=== PATIENT | female | born 1995 | race Caucasian/White ===

== ENCOUNTER 2024-06-20 05:55 | Emergency (ER) | payer OTHER, SELFPAY ==
[2024-06-20 05:56] VITALS: BP 134/80
--- NOTE | 2024-06-20 06:16 | ED.GENMED ---
History of Present Illness
General
Chief Complaint: Abdominal Pain
Source: patient
Exam Limitations: none
Time Seen by Provider: 06/20/24 06:15
Nursing documentation reviewed up to this point in time: agreed with
History of Present Illness
History of Present Illness:
Patient is a 28-year-old female who presents to the ER complaining of left-sided abdominal pain. She reports she has had dull left-sided lower abdominal pain for the past 3 days however pain became worse and sharp around 3 AM. She did take Tylenol
at that time. She does feel some pain in her back. She denies any associated urinary urgency or dysuria. Her last menstrual was 1 week ago and was normal for her. She denies any associated fever or chills. She does have a history of
constipation but takes magnesium but did move her bowels yesterday. She is on Ozempic. She has been on Ozempic for the past 1 year with no problems and her dose was not recently increased.
Past History
Past History
ED Past Medical History: Other (Gastritis); Negative None, Asthma, HTN, Hypercholesterolemia or NIDDM
ED Past Surgical History: and Other ([place] teeth removed in october)
Social History
Tobacco: Non-smoker
Alcohol: Occasional (Rare)
Personal: Single
Living: with family
Employment: Employed (Grocery store)
Family History
Family History: Other (Noncontributory)
Review of Systems
Review of Systems
Allergies reviewed?: Yes
All Other Systems: ROS reviewed and negative except as documented in HPI and ROS
Constitutional: Reports no symptoms; Denies fever, fatigue or chills
EENT: Reports no symptoms
Respiratory: Reports no symptoms
Cardiac: Reports no symptoms
ABD/GI: Reports abdominal pain and nausea; Denies vomiting, diarrhea or constipated
: Reports no symptoms; Denies flank pain, urgency or discharge
Musculoskeletal: Reports back pain
Skin: Reports no symptoms
Neurological: Reports no symptoms
Psychiatric: Reports no symptoms
Phy Exam
General Physical Exam
General Presentation: no apparent distress
General age: appears stated age
General Skin: warm and dry
General Habitus: normal
General Mental: alert
General Hydration: appears well hydrated
Gastrointestinal Exam
Gastrointestinal Exam: soft and other (left sided mid abd tenderness )
Neurological Exam
Neurological Exam: alert and oriented x3
Musculoskeletal Exam
Musculoskeletal Exam: full ROM
Skin Exam
Skin Exam: normal color and warm/dry
Psychiatric Exam
Psychiatric Exam: normal mood/affect
Course
Orders/Labs/Results
Orders:
Orders
06/20/24 06:43
Test Result ONCE
06/20/24 06:45
Complete Blood Count/With Diff Urgent
Comprehensive Metabolic Panel Urgent
HCG, Serum Qualitative Screen Urgent
Urinalysis Reflex To Culture Urgent
Date Specimen was Collected: 06/20/24
Time Specimen was Collected: 06:43
Urine Microscopic Reflex Cult Urgent
Urine Culture Urgent
BATSHEVA Source: U
Specimen Description:
Date Specimen was Collected: 06/20/24
Time Specimen was Collected: 06:43
06/20/24 07:07
CT Abd/pelvis W Iv Cont Urgent
Comment:
Reason For Exam: left sided abd pain
06/20/24 07:08
US Pelvis Only (non-obstetric) Urgent
Comment:
Reason For Exam: left sided abd pain
06/20/24 08:59
Ondansetron Injectable [Zofran] 4 mg .ROUTE .ST-MED ONE
06/20/24 09:00
Ondansetron Injectable [Zofran] 4 mg IV NOW STA
06/20/24 10:37
Nitrofurantoin Monohydrate [Macrobid] 100 mg PO NOW STA
Abnormal Lab Results
06/20/24
06:45
WBC 10.9 H 10^3/uL
(4.8-10.8)
RBC 4.00 L 10^6/uL
(4.20-5.40)
Hgb 11.0 L g/dL
(12.0-16.0)
Hct 33.0 L %
(37.0-47.0)
Absolute Neuts (auto) 8.9 H 10^3/uL
(1.4-6.5)
Neutrophils % 81.9 H %
(42.2-75.2)
Lymphocytes % 10.8 L %
(20.5-51.1)
Potassium 3.4 L mmol/L
(3.5-5.1)
Glucose 105 H mg/dl
(70-99)
AST 13 L U/L
(14-36)
Leukocyte Esterase Rfl 2+ A
(Negative)
Urine RBC 3-6 A /HPF
(0-2)
Urine WBC (Reflex) 11-15 A /HPF
(0-5)
Urine Bacteria (Reflex) Moderate A
(Negative)
Urine Albumin (Reflex) 1+ A
(Neg - Trace)
06/20/24 06:45
06/20/24 06:45
Vital Signs
Initial and Last Documented VS:
Initial Vital Signs
Temp Pulse Resp BP Pulse Ox
98.5 F 78 18 134/80 99
06/20/24 05:56 06/20/24 05:56 06/20/24 05:56 06/20/24 05:56 06/20/24 05:56
Last Documented Vital Signs
Temp Pulse Resp BP Pulse Ox
98.0 F 71 16 121/80 100
06/20/24 06:34 06/20/24 09:57 06/20/24 09:57 06/20/24 09:57 06/20/24 09:57
MDM/Problems Addressed
Differential Diagnosis Includes:
Not limited to diverticulitis colitis less likely renal stone UTI
MDM/Problems Addressed:
As documented patient is a 28-year-old female who presented left side abdominal pain for the past 3 days. No associated urinary symptoms. Patient denies any fever chills change in bowels. She is on Ozempic however this medication has not been
recently changed. She has tolerated that well. On exam she is no acute distress very minimal left side abdominal tenderness. No acute findings on CAT scan or ultrasound. There is an incidental right sided ovarian cyst. Patient was little
nauseous received nausea medicine feeling better. No acute cause of the patient's symptoms however urine appears infected. case d/c w/ DR Wynn will cover for possible UTI w/ Macrobid .
*Radiology
Radiology exam reviewed: radiology read reviewed
*Pulse Oximetry
Patient hypoxic: no
*Critical Care Note
Total Time (30-74mins, 75-104mins- exclusive of procedures): Not Applicable
ED Attending Note
-
Portions of this chart may have been created with voice recognition software.� Occasional wrong word or��sound alike� substitutions may have occurred due to the inherent limitations of voice recognition software.
Discharge Plan
Departure
Patient Disposition: Home (Routine Discharge)
Date of Disposition: 06/20/24
Time of Disposition: 10:39
Patient with high blood pressure during this ER visit?: Yes
Condition: Fair
Covid-19: Not Applicable
Discharge Problem:
Abdominal pain, UTI (urinary tract infection)
Instructions: Urinary tract infections in adults, Abdominal Pain, BLOOD PRESSURE
Prescriptions:
New
nitrofurantoin monohyd/m-cryst [Macrobid] 100 mg capsule
100 mg PO BID Qty: 10 0RF
No Action
escitalopram oxalate [Lexapro] 10 mg Tablet
10 mg PO DAILY
Ozempic 0.25 mg or 0.5 mg(2 mg/1.5 mL) Pen Injector
0.75 mg SC QWEEK
Rx Instructions:
monday
Referrals:
Magali Avendano PA-C [Family Provider] -
Romy Jo DO [Active] -
Activity Restrictions/Additional Instructions:
As discussed we will treat for possible urinary tract infection. Incidentally on ultrasound there is a 2.5 cm simple appearing right ovarian cyst otherwise unremarkable uterus and left ovary and your CAT scan of your abdomen showed nothing acute.
Take antibiotics as directed for the next 5 days this medication was sent to your pharmacy increase fluids. Follow-up with your family doctor in the next several days a reevaluation of your symptoms as well as [employer]. Return if any worsening of
symptoms
Interventions
Interventions:
*Risk Screen - Suicide Last Done: 06/20/24 05:56
*General Assessment Last Done: 06/20/24 05:56
*Neglect/Abuse Screening Last Done: 06/20/24 05:56
*ED- Fall Risk Assessment Last Done: 06/20/24 06:30
*ED COVID-19 Vaccine History Last Done: 06/20/24 05:56
JP-Yeypyj-Zborsydziy Assessment Last Done: 06/20/24 06:30
Discharge Date and Time
Print Language: LITHUANIAN
[2024-06-20 06:30] VITALS: BMI 39.7
[2024-06-20 06:58] LABS: % Basophils 0.6 % (0-2); % Eosinophils 1.5 % (0-6); % Immature Granulocytes 0.3 % (0-0.5); % Lymphocytes 10.8 % (20.5-51.1); % Monocytes 4.9 % (1.7-9.3); % Neutrophils 81.9 % (42.2-75.2); Absolute Basophils 0.1 10^3/uL (0-0.2); Absolute Eosinophils 0.2 10^3/uL (0-0.7); Absolute Lymphocytes 1.2 10^3/uL (1.2-3.4); Absolute Monocytes 0.5 10^3/uL (0.1-0.6); Absolute Neutrophils 8.9 10^3/uL (1.4-6.5); Mean Corp Hgb Conc. 33.3 g/dL (33.0-37.0); Mean Corpuscular Hgb 27.5 pg (27.0-31.0); Mean Corpuscular Volume 82.5 fL (81.0-99.0); Mean Platelet Volume 10.3 fL (7.4-10.4); Nucleated Red Blood Cells % 0 %; Platelet Count 389 10^3/uL (130-400); White Blood Cell Count 10.9 10^3/uL (4.8-10.8)
[2024-06-20 07:13] LABS: ALT (SGPT) < 10 U/L (0-35); AST (SGOT) 13 U/L (14-36); Albumin 3.7 g/dl (3.5-5.0); Alkaline Phosphatase 69 U/L (38-126); Blood Urea Nitrogen 8 mg/dl (7-17); Calcium 9.3 mg/dl (8.4-10.2); Carbon Dioxide 29 mmol/L (22-30); Chloride 104 mmol/L (98-107); Estimated Creatinine Clearance > 125 ml/min; Glucose 105 mg/dl (70-99); Potassium 3.4 mmol/L (3.5-5.1); Sodium 141 mmol/L (135-145); Total Bilirubin 0.6 mg/dl (0.2-1.3); Total Protein 6.5 g/dl (6.3-8.2); eGFR > 60.00
[2024-06-20 07:15] LABS: HCG, Serum Qualitative Screen Negative
[2024-06-20 07:44] LABS: Urine Albumin 1+ (Neg - Trace); Urine Bilirubin Negative (Negative); Urine Character Slightly Cloudy (Clear); Urine Color Yellow; Urine Glucose Negative (Negative); Urine Ketone Negative (Negative); Urine Leukocyte 2+ (Negative); Urine Nitrite Negative (Negative); Urine Occult Blood Negative (Negative); Urine Specific Gravity 1.015 (<1.030); Urine Urobilinogen Negative (Neg - 1+)
[2024-06-20] MEDS: ZOFRAN 4 MG IV (09:01)
[2024-06-20 09:13] LABS: Urine Squamous Cell >30 /LPF (Few); Urine Urothelial Cell 0-2 /LPF (FEW)
[2024-06-20 09:17] LABS: Urine Bacteria Moderate (Negative)
[2024-06-20 09:57] VITALS: BP 121/80
[2024-06-20] MEDS: MACROBID 100 MG PO (10:42)
== END 2024-06-20 11:06 | disposition home or self-care (01) ==
LOC: EMR 05:55
PROVIDERS: Nurse Practitioner; EMERGENCY PHYSICIAN Emergency Medicine; FAMILY PHYSICIAN Physician Assistant
DX: N39.0 Urinary tract infection, site not specified (principal); N83.201 Unspecified ovarian cyst, right side
CPT/HCPCS: 96374; 99284; 74177; 76856; 80053; 81003; 81015; 84703; 85025; 87086; Q9967

== ENCOUNTER 2024-07-27 15:00 | Emergency (ER) | payer OTHER, SELFPAY ==
[2024-07-27 15:00] VITALS: BMI 38.0
[2024-07-27 15:02] VITALS: BP 130/83
--- NOTE | 2024-07-27 15:41 | ED.GENMED ---
History of Present Illness
General
Chief Complaint: Vaginal Bleeding
Time Seen by Provider: 07/27/24 15:41
History of Present Illness
History of Present Illness:
REVIEW OF OLD RECORDS
- I reviewed records. The patient was seen here June 20, 2024 with abdominal pain. At that time she had been having dull left-sided abdominal pain for the preceding 3 days. She has been on Ozempic. A right sided ovarian cyst was seen on imaging
(had CT scan and ultrasound that time).
CHIEF COMPLAINT(S)
Vaginal bleeding and right lower abdominal pain.
HISTORY OF PRESENT ILLNESS
The patient is a 28-year-old female presenting with vaginal bleeding and right lower abdominal pain. She reports a history of similar pain located on the left side during a previous Emergency Room visit on June 17 of this year, where an ovarian cyst
was noted on an ultrasound. Today, the patient describes her pain as being on the right side, radiating to her back. The vaginal bleeding began this morning, with the patient experiencing heavy bleeding, filling a pad every hour and passing a large
clot. She noted she was four days late with her menstrual cycle last month, and if this current bleeding is a period, it is 10 days early. A test taken by the patient was negative. The onset of abdominal pain was during the night. She
experienced mild tenderness upon palpation on the right side during the physical exam. The patient denies nausea, vomiting, diarrhea, breathing difficulties, or chest pain.
EXTERNAL RECORDS REVIEWED
According to previous Emergency Room records from a visit on June 17, a computed tomography scan and ultrasound were conducted, revealing an ovarian cyst on the right side.
PHYSICAL EXAM
- Abdominal Exam: Mild tenderness on palpation of the right lower quadrant.
- Respiratory System: No breathing difficulties or chest pain observed.
- General: Well appearing in no distress
- HEENT: Moist oral mucosa
- Cardiovascular: No murmurs, normal heart rate, regular rhythm, No chest wall tenderness
- Neurologic: Excellent strength all extremities, no coordination deficits
- Psychiatric: Appropriate mental status, normal insight and judgement
- Extremities: Nontender, no edema, moves all extremities equally
- Skin: No rash, no lesions
PROBLEM LIST
- Acute: Vaginal bleeding, Right lower abdominal pain
- Chronic: History of ovarian cyst
PLAN
- Repeat ultrasound to evaluate for changes in the pelvic region.
- Perform bloodwork to assess for any underlying abnormalities.
- Administer a dose of Toradol (Ketorolac) for pain management.
- Consult with the patients obstetrics and gynecology provider, Dr. Brittney Ellison.
DIFFERENTIAL DIAGNOSIS
The Differential Diagnosis includes, in no particular order and is not limited to:
- Ovarian cyst
- Ectopic
- Pelvic inflammatory disease
- Endometriosis
- Uterine fibroids
- Gynecological malignancy
- Hemorrhagic cyst
- Adenomyosis
- Acute appendicitis
- Urinary tract infection
RADIOLOGY
- Ultrasound imaging of the pelvis personally reviewed and I agree with radiologist interpretation of a 4.8 cm left ovarian cyst new from prior and small amount of free fluid noted suggestive of rupture
EKG
- Not indicated
LABS
- Labs obtained, hemoglobin stable
UPDATE
- Patient appeared comfortable while in the emerge department. She was given Toradol.
Past History
Past History
ED Past Medical History: Other (Gastritis); Negative None, Asthma, HTN, Hypercholesterolemia or NIDDM
ED Past Surgical History: and Other ([place] teeth removed in october)
Social History
Tobacco: Non-smoker
Alcohol: Occasional (Rare)
Personal: Single
Living: with family
Employment: Employed (Grocery store)
Family History
Family History: Other (Noncontributory)
Phy Exam
Physical Exam
Physical Exam:
See HPI
Course
Orders/Labs/Results
Orders:
Orders
07/27/24 15:47
Ketorolac [Toradol] 15 mg IV NOW STA
Test Result ONCE
US Pelvis W Transvag Combined Urgent
Reason For Exam: R pain increased vag bleed
07/27/24 15:48
0.9% Sodium Chloride 1000 ml [Nss] 1,000 ml IV BOLUS
Ketorolac [Toradol] 30 mg .ROUTE .STK-MED ONE
07/27/24 15:51
Complete Blood Count/With Diff Urgent
Comprehensive Metabolic Panel Urgent
HCG, Serum Qualitative Screen Urgent
Abnormal Lab Results
07/27/24
15:51
RBC 4.04 L 10^6/uL
(4.20-5.40)
Hgb 10.9 L g/dL
(12.0-16.0)
Hct 33.2 L %
(37.0-47.0)
MCHC 32.8 L g/dL
(33.0-37.0)
Lymphocytes % 19.1 L %
(20.5-51.1)
AST 12 L U/L
(14-36)
07/27/24 15:51
07/27/24 15:51
Vital Signs
Initial and Last Documented VS:
Initial Vital Signs
Temp Pulse Resp BP Pulse Ox
36.7 C 88 16 130/83 100
07/27/24 15:02 07/27/24 15:02 07/27/24 15:02 07/27/24 15:02 07/27/24 15:02
Last Documented Vital Signs
Temp Pulse Resp BP Pulse Ox
36.7 C 84 16 128/79 98
07/27/24 15:02 07/27/24 18:00 07/27/24 18:00 07/27/24 17:48 07/27/24 18:00
*Pulse Oximetry
Patient hypoxic: no (100% room air-normal)
*Critical Care Note
Total Time (30-74mins, 75-104mins- exclusive of procedures): Not Applicable
ED Attending Note
-
Portions of this chart may have been created with voice recognition software.� Occasional wrong word or��sound alike� substitutions may have occurred due to the inherent limitations of voice recognition software.
Discharge Plan
Departure
Patient Disposition: Home (Routine Discharge)
Patient with high blood pressure during this ER visit?: No
Discharge Problem:
Pelvic pain
Instructions: Ovarian Cyst (DC), Bleeding between periods
Prescriptions:
No Action
escitalopram oxalate [Lexapro] 10 mg Tablet
10 mg PO DAILY
Ozempic 0.25 mg or 0.5 mg(2 mg/1.5 mL) Pen Injector
0.75 mg SC QWEEK
Rx Instructions:
monday
nitrofurantoin monohyd/m-cryst [Macrobid] 100 mg capsule
100 mg PO BID Qty: 10 0RF
Referrals:
Magali Avendano PA-C [Family Provider, Internal Medicine]
Romy Jo DO [Active, Gynecology]
Activity Restrictions/Additional Instructions:
Your white blood cell count is normal. Your hemoglobin level is 10.9 this is similar to what it was last month when it was 11.0. Your test is negative. Other basic labs are normal. Ultrasound imaging was obtained today. Follow-up with
Dr. Jo.
Interventions
Interventions:
*Risk Screen - Suicide Last Done: 07/27/24 15:02
*General Assessment Last Done: 07/27/24 15:02
*Neglect/Abuse Screening Last Done: 07/27/24 15:02
*ED- Fall Risk Assessment Last Done: 07/27/24 15:46
*Nursing Disposition Last Done: 07/27/24 17:48
ED-Female Genitourinary Assessment Last Done: 07/27/24 15:46
Discharge Date and Time
Discharge Date/Time: 07/27/24 18:16
Print Language: KOREAN
[2024-07-27] MEDS: TORADOL 15 MG IV (15:50)
[2024-07-27] MEDS: NSS 1000 IV (15:50)
[2024-07-27 16:01] VITALS: BP 119/88
[2024-07-27 16:09] LABS: % Basophils 0.7 % (0-2); % Eosinophils 2.9 % (0-6); % Immature Granulocytes 0.3 % (0-0.5); % Lymphocytes 19.1 % (20.5-51.1); % Monocytes 6.7 % (1.7-9.3); % Neutrophils 70.3 % (42.2-75.2); Absolute Basophils 0.1 10^3/uL (0-0.2); Absolute Eosinophils 0.3 10^3/uL (0-0.7); Absolute Lymphocytes 1.7 10^3/uL (1.2-3.4); Absolute Monocytes 0.6 10^3/uL (0.1-0.6); Absolute Neutrophils 6.1 10^3/uL (1.4-6.5); Hematocrit 33.2 % (37.0-47.0); Hemoglobin 10.9 g/dL (12.0-16.0); Mean Corp Hgb Conc. 32.8 g/dL (33.0-37.0); Mean Corpuscular Volume 82.2 fL (81.0-99.0); Mean Platelet Volume 10.1 fL (7.4-10.4); Nucleated Red Blood Cells % 0 %; Platelet Count 394 10^3/uL (130-400); Red Blood Cell Count 4.04 10^6/uL (4.20-5.40); Red Cell Dist. Width 13.9 % (11.5-14.5); White Blood Cell Count 8.6 10^3/uL (4.8-10.8)
[2024-07-27 16:17] LABS: HCG, Serum Qualitative Screen Negative
[2024-07-27 16:49] LABS: ALT (SGPT) < 10 U/L (0-35); AST (SGOT) 12 U/L (14-36); Alkaline Phosphatase 72 U/L (38-126); Blood Urea Nitrogen 9 mg/dl (7-17); Calcium 9.3 mg/dl (8.4-10.2); Carbon Dioxide 24 mmol/L (22-30); Chloride 106 mmol/L (98-107); Estimated Creatinine Clearance > 125 ml/min; Glucose 91 mg/dl (70-99); Potassium 3.7 mmol/L (3.5-5.1); Sodium 139 mmol/L (135-145); Total Bilirubin 0.6 mg/dl (0.2-1.3); Total Protein 7.1 g/dl (6.3-8.2); eGFR > 60.00
[2024-07-27 17:48] VITALS: BP 128/79
== END 2024-07-27 18:16 | disposition home or self-care (01) ==
LOC: EMR 15:00
PROVIDERS: EMERGENCY PHYSICIAN Emergency Medicine; FAMILY PHYSICIAN Physician Assistant
DX: R10.2 Pelvic and perineal pain (principal); N93.9 Abnormal uterine and vaginal bleeding, unspecified; R10.31 Right lower quadrant pain; N83.201 Unspecified ovarian cyst, right side; N83.202 Unspecified ovarian cyst, left side; Z91.040 Latex allergy status
CPT/HCPCS: 99284; 96374; 96361; 76830; 76856; 80053; 84703; 85025

== ENCOUNTER → 2024-10-02 07:41 | Outpatient (REF) | payer OTHER, SELFPAY | LOC: HWRAD 07:41 | PROVIDERS: ATTENDING PHYSICIAN Obstetrics & Gynecology; FAMILY PHYSICIAN Physician Assistant | DX: N83.202 Unspecified ovarian cyst, left side (principal) | CPT/HCPCS: 76830; 76856 ==

== ENCOUNTER 2024-11-18 08:56 | Emergency (ER) | payer OTHER, SELFPAY ==
[2024-11-18 08:59] VITALS: BP 132/83
[2024-11-18 09:24] VITALS: BMI 35.5
[2024-11-18 09:39] VITALS: BP 117/69
--- NOTE | 2024-11-18 09:40 | ED.GENMED ---
History of Present Illness
<DO Naz Carrion Last Filed: 11/20/24 00:17>
General
Chief Complaint: Abdominal Pain
Source: patient
Time Seen by Provider: 11/18/24 09:30
History of Present Illness
History of Present Illness:
29-year-old female presents to the emergency room complaining of abdominal pain. Patient states she had a sudden onset of right lower abdominal/pelvic pain last night. She did not take anything for the pain. No fever or chills. Pain is worse
with trying to stand up straight or with walking. Patient denies any vaginal discharge or bleeding. Last menstrual period was 2 weeks ago and normal. Patient has had similar pain with ovarian cysts.
Past History
<DO Naz Carrion Last Filed: 11/20/24 00:17>
Past History
ED Past Medical History: Other (Gastritis); Negative None, Asthma, HTN, Hypercholesterolemia or NIDDM
ED Past Surgical History: and Other ([place] teeth removed in october)
Social History
Tobacco: Non-smoker
Alcohol: Occasional (Rare)
Personal: Single
Living: with family
Employment: Employed (Grocery store)
Family History
Family History: Other (Noncontributory)
Phy Exam
<DO Naz Carrion Last Filed: 11/20/24 00:17>
Physical Exam
Physical Exam:
General: Awake, Alert, Oriented X3. No acute distress.
Vitals: unremarkable
Head: Atraumatic
Eyes: Pupils equal, EOMI
Throat: Airway intact, no exudates
Neck: Trachea midline
Lungs: Clear and equal b/l
Heart: Regular rate, no murmurs
Abd: Soft, Nontender, No pulsatile mass
Neuro: Nonfocal
Skin: Warm, dry, no rash
Extremities: pulses equal b/l, no edema
Course
Golt;Jam JoshCarroll Jones, DO - Last Filed: 11/20/24 00:17>
Orders/Labs/Results
Orders:
Orders
11/18/24 09:21
Test Result ONCE
11/18/24 09:36
0.9% Sodium Chloride 1000 ml [Nss] 1,000 ml IV BOLUS
Ketorolac [Toradol] 15 mg IV NOW STA
11/18/24 09:37
US Pelvis W Transvag Combined Urgent
Comment:
Reason For Exam: r pelvic pain eval for torsion
11/18/24 09:40
CMP [Comprehensive Metabolic Panel] Urgent
Complete Blood Count/With Diff Urgent
HCG, Serum Qualitative Screen Urgent
Lipase Urgent
11/18/24 12:55
CT Abd/pelvis W Iv Cont Urgent
Comment:
Reason For Exam: rlq pain
Abnormal Lab Results
11/18/24
09:40
WBC 14.0 H 10^3/uL
(4.8-10.8)
RBC 4.06 L 10^6/uL
(4.20-5.40)
Hgb 10.9 L g/dL
(12.0-16.0)
Hct 33.0 L %
(37.0-47.0)
MCH 26.8 L pg
(27.0-31.0)
Plt Count 425 H 10^3/uL
(130-400)
Abs Immat Gran (auto) 0.1 H 10^3/uL
(0-0.05)
Absolute Neuts (auto) 11.8 H 10^3/uL
(1.4-6.5)
Absolute Monos (auto) 0.7 H 10^3/uL
(0.1-0.6)
Neutrophils % 83.7 H %
(42.2-75.2)
Lymphocytes % 8.2 L %
(20.5-51.1)
11/18/24 09:40
11/18/24 09:40
Vital Signs
Initial and Last Documented VS:
Initial Vital Signs
Temp Pulse Resp BP Pulse Ox
97.6 F 94 18 132/83 97
11/18/24 08:59 11/18/24 08:59 11/18/24 08:59 11/18/24 08:59 11/18/24 08:59
Last Documented Vital Signs
Temp Pulse Resp BP Pulse Ox
98.4 F 81 18 117/70 100
11/18/24 16:15 11/18/24 16:15 11/18/24 16:15 11/18/24 16:15 11/18/24 16:15
<Malcolm Salinas, DO - Last Filed: 11/18/24 15:58>
Orders/Labs/Results
Orders:
Orders
11/18/24 09:21
Test Result ONCE
11/18/24 09:36
0.9% Sodium Chloride 1000 ml [Nss] 1,000 ml IV BOLUS
Ketorolac [Toradol] 15 mg IV NOW STA
11/18/24 09:37
US Pelvis W Transvag Combined Urgent
Comment:
Reason For Exam: r pelvic pain eval for torsion
11/18/24 09:40
CMP [Comprehensive Metabolic Panel] Urgent
Complete Blood Count/With Diff Urgent
HCG, Serum Qualitative Screen Urgent
Lipase Urgent
11/18/24 12:55
CT Abd/pelvis W Iv Cont Urgent
Comment:
Reason For Exam: rlq pain
Abnormal Lab Results
11/18/24
09:40
WBC 14.0 H 10^3/uL
(4.8-10.8)
RBC 4.06 L 10^6/uL
(4.20-5.40)
Hgb 10.9 L g/dL
(12.0-16.0)
Hct 33.0 L %
(37.0-47.0)
MCH 26.8 L pg
(27.0-31.0)
Plt Count 425 H 10^3/uL
(130-400)
Abs Immat Gran (auto) 0.1 H 10^3/uL
(0-0.05)
Absolute Neuts (auto) 11.8 H 10^3/uL
(1.4-6.5)
Absolute Monos (auto) 0.7 H 10^3/uL
(0.1-0.6)
Neutrophils % 83.7 H %
(42.2-75.2)
Lymphocytes % 8.2 L %
(20.5-51.1)
11/18/24 09:40
11/18/24 09:40
Vital Signs
Initial and Last Documented VS:
Initial Vital Signs
Temp Pulse Resp BP Pulse Ox
97.6 F 94 18 132/83 97
11/18/24 08:59 11/18/24 08:59 11/18/24 08:59 11/18/24 08:59 11/18/24 08:59
Last Documented Vital Signs
Temp Pulse Resp BP Pulse Ox
98.4 F 81 18 117/70 100
11/18/24 16:15 11/18/24 16:15 11/18/24 16:15 11/18/24 16:15 11/18/24 16:15
Golt;Jam Jones DO - Last Filed: 11/20/24 00:17>
MDM/Problems Addressed
Differential Diagnosis Includes:
Ruptured ovarian cyst, ovarian torsion, appendicitis, ectopic
MDM/Problems Addressed:
Patient presents with what she describes as fairly sudden onset right lower pelvic pain. test is negative. Patient initially received an ultrasound to exclude ovarian torsion or ruptured ovarian cyst. Ultrasound was essentially normal.
Proceeded the CT to exclude appendicitis or other cause of right lower quadrant pain. Patient signed out to Dr. Salinas pending CT report.
<Jam Jones, DO - Last Filed: 11/20/24 00:17>
*Pulse Oximetry
SaO2: 97
Oxygen Mode of Delivery: Room air
Patient hypoxic: no
*Critical Care Note
Total Time (30-74mins, 75-104mins- exclusive of procedures): Not Applicable
<Malcolm Salinas, DO - Last Filed: 11/18/24 15:58>
Update Note
Update Note:
The care of patient was initially transition pending CT to rule out appendicitis. The radiologist called and stated concern for retroperitoneal lymphadenopathy and concern for lymphoma. Patient states she does have a family history of cancer. We
discussed the importance of outpatient follow-up with hematology/oncology to further work this up to exclude cancer. Patient acknowledged my concern and states she will call
ED Attending Note
<Jam Jones, DO - Last Filed: 11/20/24 00:17>
-
Portions of this chart may have been created with voice recognition software.� Occasional wrong word or��sound alike� substitutions may have occurred due to the inherent limitations of voice recognition software.
Discharge Plan
Departure
Patient Disposition: Home (Routine Discharge)
Date of Disposition: 11/18/24
Time of Disposition: 15:56
Patient with high blood pressure during this ER visit?: No
Discharge Problem:
Abdominal pain
Instructions: Abdominal Pain
Prescriptions:
No Action
escitalopram oxalate [Lexapro] 10 mg Tablet
10 mg PO DAILY
Ozempic 0.25 mg or 0.5 mg(2 mg/1.5 mL) Pen Injector
0.75 mg SC QWEEK
Rx Instructions:
wednesday
nitrofurantoin monohyd/m-cryst [Macrobid] 100 mg capsule
100 mg PO BID Qty: 10 0RF
Referrals:
Talya Garcia MD [Active, Hematology / Oncology]
Magali Avendano PA-C [Family Provider, Internal Medicine]
Activity Restrictions/Additional Instructions:
Please return for any worsening symptoms.
You may return at any time if you have further concerns.
Please follow up with your doctor at the first available appointment, preferably this week.
Please call the roller/oncologist. As we discussed, the radiologist raised concern for the lymph nodes in the CT scan. He mentioned that the roller/oncologist should see you to rule out lymphoma.
Thank you for choosing [facility].
Interventions
Interventions:
*Risk Screen - Suicide Last Done: 11/18/24 08:59
*General Assessment Last Done: 11/18/24 08:59
*Neglect/Abuse Screening Last Done: 11/18/24 08:59
*ED- Fall Risk Assessment Last Done: 11/18/24 09:24
*ED COVID-19 Vaccine History Last Done: 11/18/24 09:24
*ED Influenza Vaccine History Last Done: 11/18/24 09:24
*Nursing Disposition Last Done: 11/18/24 16:15
LE-Zzxpvs-Qpmbykjdii Assessment Last Done: 11/18/24 09:24
Discharge Date and Time
Discharge Date/Time: 11/18/24 16:20
Print Language: MONEGASQUE
[2024-11-18] MEDS: NSS 1000 IV (09:45)
[2024-11-18] MEDS: TORADOL 15 MG IV (09:48)
[2024-11-18 09:56] LABS: Hematocrit 33.0 % (37.0-47.0); Hemoglobin 10.9 g/dL (12.0-16.0); Mean Corp Hgb Conc. 33.0 g/dL (33.0-37.0); Mean Corpuscular Volume 81.3 fL (81.0-99.0); Nucleated Red Blood Cells % 0 %; Platelet Count 425 10^3/uL (130-400); Red Cell Dist. Width 14.4 % (11.5-14.5)
[2024-11-18 10:00] VITALS: BP 116/62
[2024-11-18 10:16] LABS: HCG, Serum Qualitative Screen Negative
[2024-11-18 10:25] LABS: ALT (SGPT) 12 U/L (0-35); AST (SGOT) 17 U/L (14-36); Albumin 3.9 g/dl (3.5-5.0); Alkaline Phosphatase 91 U/L (38-126); Blood Urea Nitrogen 7 mg/dl (7-17); Calcium 9.2 mg/dl (8.4-10.2); Carbon Dioxide 25 mmol/L (22-30); Chloride 104 mmol/L (98-107); Estimated Creatinine Clearance > 125 ml/min; Glucose 95 mg/dl (70-99); Lipase 74 U/L (23-300); Potassium 4.4 mmol/L (3.5-5.1); Sodium 137 mmol/L (135-145); Total Protein 7.3 g/dl (6.3-8.2); eGFR > 60.00
[2024-11-18 11:00] VITALS: BP 107/49
[2024-11-18 16:08] VITALS: BP 117/70
[2024-11-18 16:15] VITALS: BP 117/70
--- NOTE | 2024-11-18 17:07 | EDRN ---
Reviewed discharge instructions with patient. Verbalized understanding. Ambulated with steady gait to the lobby.
== END 2024-11-18 16:20 | disposition home or self-care (01) ==
LOC: EMR 08:56
PROVIDERS: EMERGENCY PHYSICIAN Emergency Medicine; FAMILY PHYSICIAN Physician Assistant
DX: R10.30 Lower abdominal pain, unspecified (principal); R10.2 Pelvic and perineal pain
CPT/HCPCS: 99284; 96374; 96361; 74177; 76830; 76856; 80053; 83690; 84703; 85025; Q9967

== ENCOUNTER 2024-11-26 13:54 | Inpatient (IN) | payer OTHER, SELFPAY ==
[2024-11-26] VITALS (9 sets, daily range): BP systolic 103–134; BP diastolic 57–76; BMI 34.6; BMI 34.2
--- NOTE | 2024-11-26 06:57 | ED.GENMED ---
ED Provider Triage
<Santiago Pratt MD, Resident - Last Filed: 11/26/24 12:27>
-
Patient seen by provider in Triage?: Seen in Triage
History of Present Illness
<Santiago Pratt MD, Resident - Last Filed: 11/26/24 12:27>
General
Chief Complaint: Abdominal Pain
Source: patient
Exam Limitations: none
Time Seen by Provider: 11/26/24 06:40
History of Present Illness
History of Present Illness:
29-year-old female who presents today via EMS because of dull to sharp, localized, intermittent abdominal pain that started at 6 AM this morning in the right lower quadrant. Pain managed with Tylenol. No relieving factors. Pain is similar to
presentation that she had last week when she came with abdominal pain and got a CT scan/ultrasonographic of the abdomen and the diagnosis was that she had an enlarged spleen, liver, lymph nodes. She was then given a referral to go see oncologist to
rule out lymphoma. The pain is associated with nausea, shortness of breath, constipation. No vomiting, diarrhea, loss of appetite, urinary symptoms, hematoma, vaginal discharge. Previous abdominal surgeries include 2 C-sections. She has a
history of ovarian cyst on both sides.
Past History
<Santiago Pratt MD, Resident - Last Filed: 11/26/24 12:27>
Past History
ED Past Medical History: Other (Gastritis); Negative None, Asthma, HTN, Hypercholesterolemia or NIDDM
ED Past Surgical History: and Other ([place] teeth removed in october)
Social History
Tobacco: Non-smoker
Alcohol: Occasional (Rare)
Personal: Single
Living: with family
Employment: Employed ([employer] store)
Family History
Family History: Other (Noncontributory)
Review of Systems
<Santiago Pratt MD, Resident - Last Filed: 11/26/24 12:27>
Review of Systems
Allergies reviewed?: Yes
All Other Systems: ROS reviewed and negative except as documented in HPI and ROS
Phy Exam
<Santiago Pratt MD, Resident - Last Filed: 11/26/24 12:27>
General Physical Exam
General Presentation: well appearing and no apparent distress
General Skin: warm
General Habitus: normal
General Mental: alert
Cardiovascular Exam
Cardiovascular Exam: regular rate/rhythm and no edema
Pulmonary Exam
Pulmonary Exam: lungs clear and no respiratory distress
Gastrointestinal Exam
Gastrointestinal Exam: normal bowel sounds, soft, non distended and tender (Tenderness to palpation in the right lower quadrant)
Neurological Exam
Neurological Exam: alert and oriented x3
Skin Exam
Skin Exam: normal color, warm/dry and no rash
Course
<Santiago Pratt MD, Resident - Last Filed: 11/26/24 12:27>
Orders/Labs/Results
Orders:
Orders
11/26/24 06:55
Ondansetron HCl [Zofran] 4 mg PO NOW STA
11/26/24 06:57
Ketorolac [Toradol] 30 mg IM NOW STA
11/26/24 07:02
Ketorolac [Toradol] 30 mg IV NOW STA
Ondansetron Injectable [Zofran] 4 mg IV NOW STA
11/26/24 07:10
Iohexol [Omnipaque] See Protocol PO NOW STA
11/26/24 07:11
CT Abd/pel W Iv And Oral Contr Urgent
Comment:
Reason For Exam: worsening RLQ pain
Test Result ONCE
11/26/24 07:25
CBC/With Diff [Complete Blood Count/With Diff] Urgent
CMP [Comprehensive Metabolic Panel] Urgent
HCG, Serum Qualitative Screen Urgent
Lactic Acid Q4H
Comment: CANCEL 2nd LACTIC ACID IF 1st LACTIC ACID IS LESS THAN 2
Lipase Urgent
11/26/24 07:57
Urinalysis Reflex To Culture Urgent
Date Specimen was Collected: 11/26/24
Time Specimen was Collected: 07:39
11/26/24 11:09
Morphine Sulfate 4 mg IV NOW STA
11/26/24 11:15
Lactic Acid Q4H
Comment: CANCEL 2nd LACTIC ACID IF 1st LACTIC ACID IS LESS THAN 2
Abnormal Lab Results
11/26/24
07:25
WBC 17.1 H 10^3/uL
(4.8-10.8)
RBC 4.02 L 10^6/uL
(4.20-5.40)
Hgb 10.2 L g/dL
(12.0-16.0)
Hct 32.5 L %
(37.0-47.0)
MCV 80.8 L fL
(81.0-99.0)
MCH 25.4 L pg
(27.0-31.0)
MCHC 31.4 L g/dL
(33.0-37.0)
RDW 14.6 H %
(11.5-14.5)
Plt Count 438 H 10^3/uL
(130-400)
Abs Immat Gran (auto) 0.1 H 10^3/uL
(0-0.05)
Absolute Neuts (auto) 14.9 H 10^3/uL
(1.4-6.5)
Absolute Lymphs (auto) 1.0 L 10^3/uL
(1.2-3.4)
Absolute Monos (auto) 0.8 H 10^3/uL
(0.1-0.6)
Immature Gran % 0.6 H %
(0-0.5)
Neutrophils % 87.3 H %
(42.2-75.2)
Lymphocytes % 5.6 L %
(20.5-51.1)
Glucose 108 H mg/dl
(70-99)
11/26/24 07:25
11/26/24 07:25
Vital Signs
Initial and Last Documented VS:
Initial Vital Signs
Temp Pulse Resp BP Pulse Ox
98.3 F 100 20 134/76 98
11/26/24 06:35 11/26/24 06:35 11/26/24 06:35 11/26/24 06:35 11/26/24 06:35
Last Documented Vital Signs
Temp Pulse Resp BP Pulse Ox
98.3 F 100 20 118/71 96
11/26/24 06:35 11/26/24 06:35 11/26/24 06:35 11/26/24 11:00 11/26/24 11:45
<Esperanza Cullen DO - Last Filed: 11/26/24 12:10>
Orders/Labs/Results
Orders:
Orders
11/26/24 06:55
Ondansetron HCl [Zofran] 4 mg PO NOW STA
11/26/24 06:57
Ketorolac [Toradol] 30 mg IM NOW STA
11/26/24 07:02
Ketorolac [Toradol] 30 mg IV NOW STA
Ondansetron Injectable [Zofran] 4 mg IV NOW STA
11/26/24 07:10
Iohexol [Omnipaque] See Protocol PO NOW STA
11/26/24 07:11
CT Abd/pel W Iv And Oral Contr Urgent
Comment:
Reason For Exam: worsening RLQ pain
Test Result ONCE
11/26/24 07:25
CBC/With Diff [Complete Blood Count/With Diff] Urgent
CMP [Comprehensive Metabolic Panel] Urgent
HCG, Serum Qualitative Screen Urgent
Lactic Acid Q4H
Comment: CANCEL 2nd LACTIC ACID IF 1st LACTIC ACID IS LESS THAN 2
Lipase Urgent
11/26/24 07:57
Urinalysis Reflex To Culture Urgent
Date Specimen was Collected: 11/26/24
Time Specimen was Collected: 07:39
11/26/24 11:09
Morphine Sulfate 4 mg IV NOW STA
11/26/24 11:15
Lactic Acid Q4H
Comment: CANCEL 2nd LACTIC ACID IF 1st LACTIC ACID IS LESS THAN 2
Abnormal Lab Results
11/26/24
07:25
WBC 17.1 H 10^3/uL
(4.8-10.8)
RBC 4.02 L 10^6/uL
(4.20-5.40)
Hgb 10.2 L g/dL
(12.0-16.0)
Hct 32.5 L %
(37.0-47.0)
MCV 80.8 L fL
(81.0-99.0)
MCH 25.4 L pg
(27.0-31.0)
MCHC 31.4 L g/dL
(33.0-37.0)
RDW 14.6 H %
(11.5-14.5)
Plt Count 438 H 10^3/uL
(130-400)
Abs Immat Gran (auto) 0.1 H 10^3/uL
(0-0.05)
Absolute Neuts (auto) 14.9 H 10^3/uL
(1.4-6.5)
Absolute Lymphs (auto) 1.0 L 10^3/uL
(1.2-3.4)
Absolute Monos (auto) 0.8 H 10^3/uL
(0.1-0.6)
Immature Gran % 0.6 H %
(0-0.5)
Neutrophils % 87.3 H %
(42.2-75.2)
Lymphocytes % 5.6 L %
(20.5-51.1)
Glucose 108 H mg/dl
(70-99)
11/26/24 07:25
11/26/24 07:25
Vital Signs
Initial and Last Documented VS:
Initial Vital Signs
Temp Pulse Resp BP Pulse Ox
98.3 F 100 20 134/76 98
11/26/24 06:35 11/26/24 06:35 11/26/24 06:35 11/26/24 06:35 11/26/24 06:35
Last Documented Vital Signs
Temp Pulse Resp BP Pulse Ox
98.3 F 100 20 118/71 96
11/26/24 06:35 11/26/24 06:35 11/26/24 06:35 11/26/24 11:00 11/26/24 11:45
<Santiago Pratt MD, Resident - Last Filed: 11/26/24 12:27>
MDM/Problems Addressed
Differential Diagnosis Includes:
Appendicitis, pancreatitis, lymphadenopathy, kidney stone, ureteral stone, ovarian cyst, ovarian torsion, colitis
MDM/Problems Addressed:
- CBC shows WBC of 17.1, hgb of 10.2
- CMP unremarkable
- UA unremarkable
- test negative
- Toradol given for pain, and Zofran for nausea
- CT scan of abdomen shows Marked retroperitoneal as well as additional portacaval and chloé hepatis lymphadenopathy, adenopathy slightly increased in comparison to recent prior study, particularly chloé hepatis component. Findings are again
suspicious for malignancy.
Oncology consulted, there is concern for malignancy so patient will be admitted for further workup for malignancy
<Santiago Pratt MD, Resident - Last Filed: 11/26/24 12:27>
*Pulse Oximetry
SaO2: 98
Oxygen Mode of Delivery: Room air
Patient hypoxic: no
*Critical Care Note
Total Time (30-74mins, 75-104mins- exclusive of procedures): Not Applicable
ED Attending Note
<Santiago Pratt MD, Resident - Last Filed: 11/26/24 12:27>
-
Portions of this chart may have been created with voice recognition software.� Occasional wrong word or��sound alike� substitutions may have occurred due to the inherent limitations of voice recognition software.
<Esperanza Cullen DO - Last Filed: 11/26/24 12:10>
ED Attending Note
Patient seen and examined by attending physician: Yes
I performed the substantive portion of visit, reviewed & personally made and approve the management plan that is documented in note by myself or GABRIEL.: Yes
I performed a history and physical exam of patient and discussed management with resident, I reviewed resident's note and agree with documented findings and plan of care.: Yes
ED Attending Note:
29-year-old female without significant past medical history presenting for worsening right lower quadrant abdominal pain. Patient notes pain for the past week, which has been intermittent, however since this morning has been constant. Reports
associated nausea without vomiting. Patient was seen and evaluated in the hospital on 11/18 for similar symptoms. At that time, workup was initially started with an ultrasound of the pelvis, unremarkable. Patient then had a CT abdomen and pelvis
with IV contrast to rule out appendicitis, which showed enlarged retroperitoneal lymph nodes with concern for possible lymphoma. Patient was discharged home, told to follow-up with heme-onc. She made an appointment for 12/04. Note surgical
history of . Denies fever. Denies symptoms. Reports shortness of breath with deep inspiration.
Vital signs on arrival are normal. On exam, patient is in no acute distress, however does appear uncomfortable secondary to pain. Focal tenderness to the right lower quadrant without rebound or guarding. On review of EMR and review of recent
imaging, unclear etiology of patient's localized pain. Given worsening and persistence of symptoms, will repeat imaging with oral contrast for further assessment. Will repeat laboratory analysis. Will treat patient with Toradol and Zofran and
reassess for improvement
12:00 -received a call from oncology for worsening retroperitoneal and portacaval and chloé hepatis lymphadenopathy, which has increased in appearance from a CT on 11/18. Patient is still having significant pain, and given worsening possible
oncologic process with pain, feel patient warrants admission. Did discuss with oncology who will come and evaluate
Discharge Plan
Departure
Patient Disposition: Admit
Date of Disposition: 11/26/24
Time of Disposition: 12:12
Presentation/result/management discussed w/ accepting MD/DO: Hospitalist
Patient with high blood pressure during this ER visit?: No
Condition: Fair
Discharge Problem:
Lymphadenopathy, retroperitoneal, Abdominal pain
Prescriptions:
No Action
escitalopram oxalate [Lexapro] 10 mg Tablet
10 mg PO DAILY
Ozempic 0.25 mg or 0.5 mg(2 mg/1.5 mL) Pen Injector
0.75 mg SC QWEEK
Rx Instructions:
monday
nitrofurantoin monohyd/m-cryst [Macrobid] 100 mg capsule
100 mg PO BID Qty: 10 0RF
Referrals:
Magali Avendano PA-C [Family Provider, Internal Medicine]
Interventions
Interventions:
*Risk Screen - Suicide Last Done: 11/26/24 07:51
*General Assessment Last Done: 11/26/24 07:51
*Neglect/Abuse Screening Last Done: 11/26/24 07:51
*ED COVID-19 Vaccine History Last Done: 11/26/24 07:51
*ED Influenza Vaccine History Last Done: 11/26/24 07:51
QM-Rcudjb-Gngdekkrpt Assessment Last Done: 11/26/24 07:53
Discharge Date and Time
Print Language: DIVEHI
[2024-11-26] MEDS: ZOFRAN 4 MG IV ×2 (07:27→15:26)
[2024-11-26] MEDS: TORADOL 30 MG IV (07:28)
[2024-11-26] MEDS: OMNIPAQUE 50 ML PO (07:35)
[2024-11-26 07:38] LABS: Hematocrit 32.5 % (37.0-47.0); Hemoglobin 10.2 g/dL (12.0-16.0); Mean Corp Hgb Conc. 31.4 g/dL (33.0-37.0); Mean Corpuscular Volume 80.8 fL (81.0-99.0); Nucleated Red Blood Cells % 0 %; Platelet Count 438 10^3/uL (130-400); Red Cell Dist. Width 14.6 % (11.5-14.5)
[2024-11-26 07:48] LABS: HCG, Serum Qualitative Screen Negative
[2024-11-26 07:55] LABS: ALT (SGPT) 13 U/L (0-35); AST (SGOT) 15 U/L (14-36); Albumin 3.7 g/dl (3.5-5.0); Alkaline Phosphatase 94 U/L (38-126); Calcium 9.0 mg/dl (8.4-10.2); Carbon Dioxide 27 mmol/L (22-30); Chloride 102 mmol/L (98-107); Glucose 108 mg/dl (70-99); Lipase 85 U/L (23-300); Potassium 3.6 mmol/L (3.5-5.1); Sodium 137 mmol/L (135-145); Total Protein 6.8 g/dl (6.3-8.2)
[2024-11-26 08:06] LABS: Blood Urea Nitrogen 8 mg/dl (7-17); Estimated Creatinine Clearance 125 ml/min; eGFR > 60.00
[2024-11-26 08:20] LABS: Urine Character Cloudy (Clear)
[2024-11-26] MEDS: MORPHINE SULFATE 4 MG IV (11:22)
--- NOTE | 2024-11-26 13:16 | CON.ONC ---
Consultation
-
Date Consultation Requested: 11/26/24
Date Consultation Performed: 11/26/24
Requesting Provider: Dr. Devika Hussein
Performing Provider: Dr. Marianna Jones and Dr. Luis Delvalle
Reason for Consultation: Abnormal CT results
Impression
Impression
#Abnormal CT imaging- retroperitoneal lymphadenopathy concerning for lymphoma
#RLQ abdominal pain
#Nausea
#Generalized pruritis
Plan
Plan
- Patient is a 29 year old female presenting with RLQ pain since 6 AM this morning; similar episode last week.
- CT results last week and today shows marked retroperitoneal lymphadenopathy, concerning for lymphoma. Other differential include metastatic malignancy or infectious/reactive lymphadenopathy.
- Discussed with patient about imaging findings concerning for possible malignancy such as lymphoma but diagnosis requires tissue confirmation.
- Patient will likely need excision or core needle biopsy. Plan to consult GI to possibly obtain biopsy via upper endoscopy.
- Patient has anemia (hgb 10.2, low MCV)- iron studies pending.
- Awaiting Leukemia lymphoma phenotype results.
- Emphasized importance of keeping the appointment with [facility] on 12/04/24 for further evaluation and management planning.
Patient History
History of Present Illness
Patient is a 29 year old female without significant past medical history presenting with abdominal pain. Patient has been having constant and progressive right lower quadrant abdominal pain since 6 AM this morning associated with nausea. The
abdominal pain radiates towards the back. Patient had a similar episode last week, and CT abdomen/pelvis showed retroperitoneal lymphadenopathy concerning for malignancy, specifically lymphoma. She has had generalized pruritic over the past 6
months, and states had night sweats over the past few nights. Patient has an appointment with [facility] on 12/04/24 for further work up. LMP 11/05/24, normal.
Past-Medical/Surgical History
Family history significant for leukemia in maternal grandfather, lung cancer and breast cancer in maternal aunts.
Patient Medication
�Medication �Instructions �Recorded �Confirmed �Last Taken �Type
escitalopram oxalate 10 mg tablet 10 mg PO DAILY 06/20/24 06/20/24 Unknown History
(Lexapro)
nitrofurantoin 100 mg PO BID #10 caps 06/20/24 Unknown Rx
monohydrate/macrocrystals 100 mg
capsule (Macrobid)
semaglutide 0.25 mg or 0.5 mg (2 0.75 mg SC QWEEK 06/20/24 06/20/24 Unknown History
mg/1.5 mL) subcutaneous pen
injector (Ozempic)
Review of Systems
-
History Source: Patient
All Other Systems: Reviewed and Negative
Constitutional: Reports Night Sweats
EENT: Reports No Symptoms
Respiratory: Reports No Symptoms
Cardiac: Reports No Symptoms
GI: Reports Abdominal Pain and Nausea
Breast: Reports No Symptoms
: Reports No Symptoms
Musculoskeletal: Reports No Symptoms
Skin: Reports Other (Pruritis)
Neuro: Reports No Symptoms
Endocrine: Reports No Symptoms
Hematologic/Lymphatic: Reports No Symptoms
Allergy / Immunology: Reports No Symptoms
Physical Exam
-
General: Well Developed, Well Nourished, No Apparent Distress, Comfortable and Conversant
HEENT: Moist Mucous Membranes
Cardiology: Normal Sinus Rhythm, S1 and S2
Pulmonary: Clear
GI: Soft, Normal Bowel Sounds and Other (Mild tenderness over RLQ)
Musculoskeletal: No Clubbing, No Cyanosis and No Edema
Neurology: Non Focal
Skin: Warm
Psych: Calm
Labs
Lab Results
WBC 17.1 10^3/uL (4.8-10.8) H 11/26/24 07:25
RBC 4.02 10^6/uL (4.20-5.40) L 11/26/24 07:25
Hgb 10.2 g/dL (12.0-16.0) L 11/26/24 07:25
Hct 32.5 % (37.0-47.0) L 11/26/24 07:25
MCV 80.8 fL (81.0-99.0) L 11/26/24:25
MCH 25.4 pg (27.0-31.0) L 11/26/24 07:25
MCHC 31.4 g/dL (33.0-37.0) L 11/26/24:25
RDW 14.6 % (11.5-14.5) H 11/26/24 07:25
Plt Count 438 10^3/uL (130-400) H 11/26/24:25
MPV 10.1 fL (7.4-10.4) 11/26/24:25
Abs Immat Gran (auto) 0.1 10^3/uL (0-0.05) H 11/26/24:25
Absolute Neuts (auto) 14.9 10^3/uL (1.4-6.5) H 11/26/24 07:25
Absolute Lymphs (auto) 1.0 10^3/uL (1.2-3.4) L 11/26/24 07:25
Absolute Monos (auto) 0.8 10^3/uL (0.1-0.6) H 11/26/24 07:25
Absolute Eos (auto) 0.2 10^3/uL (0-0.7) 11/26/24:
Absolute Basos (auto) 0.1 10^3/uL (0-0.2) 11/26/24:25
Immature Gran % 0.6 % (0-0.5) H 11/26/24:25
Neutrophils % 87.3 % (42.2-75.2) H 11/26/24:25
Lymphocytes % 5.6 % (20.5-51.1) L 11/26/24 07:25
Monocytes % 4.7 % (1.7-9.3) 11/26/24:25
Eosinophils % 1.3 % (0-6) 10/14/25 07:25
Basophils % 0.5 % (0-2) 11/26/24 07:25
Creatinine 0.8 mg/dL (0.6-1.0) 11/26/24 07:25
Vital Signs
Vital Signs
Temp Pulse Resp BP Pulse Ox
98.3 F 100 20 118/71 96
11/26/24 06:35 11/26/24 06:35 11/26/24 06:35 11/26/24 11:00 11/26/24 11:45
--- NOTE | 2024-11-26 13:39 | HPS.HSE ---
Family Physician
-
Family Physician: Magali Avendano
Chief Complaint
-
Abdominal pain
History of Present Illness
29F with anxiety/depression, presenting with abdominal pain. First occurred last week, and CT scan in ED revealed retroperitoneal lymphadenopathy, which was concerning for malignancy such as lymphoma. She was discharged from the ED, however
returns today with worsening pain. She notes she woke up this morning with pain in her right side, radiating to her back, described as dull, constant pain, intermittently sharp, 8 out of 10, not worsened by movement. In the ED she was given IV
morphine, which resolved the pain. She also noted some nausea, no vomiting, which resolved with IV Zofran. She denies fevers, chills, chest pain, shortness of breath, diarrhea, rash. She notes she has been on Ozempic and has been losing weight
purposefully, however does note some night sweats. She notes no change in energy levels. She also notes some chronic constipation for which she takes magnesium glycine 8, last BM was 3 days ago. She has had itching for the last 6 months. Her
fianc� is at bedside.
Medical History
Past Medical History
Past Medical History: Reports Other
Additional Past Medical History:
anxiety/depression
Past Surgical History: Reports None
Social History
Tobacco: Vaping (Recently quit)
Alcohol: None
Drug: None
Personal: Partner
Living: With Family
Employment: Employed
Family History
Family History: Early CAD (Father in his 50s) and Cancer (Grandmother, aunts)
Allergies / Home Medications
Allergies reflects when Allergies were last updated in [facility].
Home Medications with original date entered in [facility]
Allergy/Medication List:
Allergies
Allergy/AdvReac Type Severity Reaction Status Date / Time
latex Allergy Rash Verified 11/26/24 06:36
Home Medications
escitalopram oxalate 10 mg tablet (Lexapro) 10 mg PO DAILY 05/08/25
magnesium glycinate 100 mg (as glycinate) tablet 100 mg PO DAILY 11/26/24
semaglutide 1 mg/dose (4 mg/3 mL) subcutaneous pen injector (Ozempic) 1 mg SC WE 11/26/24
Review of Systems
-
A 12 point ROS was completed and negative except as noted: Yes
Physical Exam
Vital Signs
Vital Signs
Temp Pulse Resp BP Pulse Ox
98.3 F 100 20 118/71 96
11/26/24 06:35 11/26/24 06:35 11/26/24 06:35 11/26/24 11:00 11/26/24 11:45
Physical Exam
General: Well Developed, Well Nourished and No Apparent Distress
HEENT: NormoCephalic, Moist mucous membranes and Atraumatic
Respiratory: Clear
Cardiac: S1/S2 and Regular Rhythm; No Murmur or Rub
GI: Soft, Non Tender, Non Distended, Normal Bowel Sounds and No Hepatosplenomegaly; No Organomegaly
Rectal: Deferred by Provider
Musculoskeletal: No Clubbing, No Cyanosis and No Edema
Skin: No Rash
Neuro: Nonfocal/grossly intact
Laboratory Results
-
11/26/24 07:25
11/26/24 07:25
Laboratory Results
Lactic Acid 0.7 mmol/L (0.7-2.0) 11/26/24 07:25
Total Bilirubin 0.6 mg/dl (0.2-1.3) 11/26/24 07:25
AST 15 U/L (14-36) 11/26/24 07:25
ALT 13 U/L (0-35) 11/26/24 07:25
Alkaline Phosphatase 94 U/L (38-126) 11/26/24 07:25
Lipase 85 U/L (23-300) 11/26/24 07:25
Data Reviewed
-
CT Scan: Report Reviewed by me, Discussed with Patient and Discussed with Family
Lab Data: Labs Reviewed by me
Impression/Plan
-
IMPRESSION:
29F with abdominal pain, found to have retroperitoneal lymphadenopathy.
PLAN:
Intractable right upper quadrant abdominal pain:
CT scan performed shows lymphadenopathy - retroperitoneal, portacaval and chloé hepatis -that is slightly increased compared to 1 week ago, which is concerning for aggressive lymphoma.
UA is WNL, lipase is WNL. Liver is mildly enlarged, however LFTs are WNL
Oncology consulted, spoke to Dr. Jones for further recommendations
Lymphoma panel
Regular diet
prn oral oxycodone, IV morphine, IV Zofran. Bowel regimen.
Leukocytosis:
Worsened from 1 week ago
Lactic acid is within normal limits, repeat is pending
Suspect this is secondary to lymphoma, workup as per onc
Blood cultures
Anxiety/depression:
Continue home Lexapro
Microcytic anemia:
Check iron panel, B12/folate
Replete if needed
Weight loss:
Hold home Ozempic
DVT PPx:
Lovenox
Full code
[2024-11-26] MEDS: ZOFRAN IV (15:19)
--- NOTE | 2024-11-26 15:24 | EDCM ---
CM reviewed chart and met with pt bedside in ED. Lives with her SO Jake and 2 children, 9yo and 2 yo, in one story modular home, [address].
Independent in ADLs, personal care and ambulation at baseline, no assistive devices, no DME.
Confirms prescription coverage.
No hx VN or SNF
PCP: Magali Avendano
Pharmacy: [facility]
Anticipate discharge home, no needs, CM will continue to follow.
[2024-11-26 15:25] LABS: Ferritin 120.0 ng/ml (6.24-137)
[2024-11-26 15:56] LABS: Folate 2.0 ng/ml (2.76-20); Iron 36 ug/dl (37-170); LDH 215 U/L (120-246); Uric Acid 4.9 mg/dl (2.5-6.2); Vitamin B12 576 pg/ml (239-931)
[2024-11-26 16:05] LABS: Total Iron Binding Capacity 239 ug/dl (265-497)
[2024-11-26] MEDS: LOVENOX 40 MG SC (20:01)
[2024-11-26] MEDS: COLACE 100 MG PO (20:02)
[2024-11-26] MEDS: ROXICODONE 5 MG PO (20:02)
[2024-11-27] MEDS: ZOFRAN 4 MG IV ×2 (06:03→16:04)
[2024-11-27] MEDS: MORPHINE SULFATE 4 MG IV (06:08)
[2024-11-27 06:14] LABS: Hematocrit 32.0 % (37.0-47.0); Hemoglobin 9.9 g/dL (12.0-16.0); Mean Corp Hgb Conc. 30.9 g/dL (33.0-37.0); Mean Corpuscular Volume 84.9 fL (81.0-99.0); Nucleated Red Blood Cells % 0 %; Platelet Count 393 10^3/uL (130-400); Red Cell Dist. Width 14.9 % (11.5-14.5)
[2024-11-27 06:34] LABS: ALT (SGPT) 11 U/L (0-35); AST (SGOT) 13 U/L (14-36); Albumin 3.3 g/dl (3.5-5.0); Alkaline Phosphatase 90 U/L (38-126); Blood Urea Nitrogen 8 mg/dl (7-17); Calcium 8.7 mg/dl (8.4-10.2); Carbon Dioxide 27 mmol/L (22-30); Chloride 104 mmol/L (98-107); Estimated Creatinine Clearance 124 ml/min; Glucose 93 mg/dl (70-99); Magnesium 2.3 mg/dl (1.6-2.3); Potassium 4.1 mmol/L (3.5-5.1); Sodium 136 mmol/L (135-145); Total Protein 6.2 g/dl (6.3-8.2); eGFR > 60.00
[2024-11-27 07:27] VITALS: BP 115/67
--- NOTE | 2024-11-27 08:15 | CON.GI ---
Addendum entered and electronically signed by Alicia Oneill MD 11/27/24 18:42:
I saw and examined the patient.
The resident's note was reviewed and I agree with the note.
Comment: 29-year-old female presenting with complaints of right lower quadrant abdominal pain in the last week that is radiating to the right flank and back. She reports that this started a couple of months ago after she had an ovarian cyst that
ruptured and followed on ultrasound. This time the pain was consistent and came to the emergency room. In the ER, CT scan of the abdomen and pelvis with IV contrast done 11/18/2024 showing prominent retroperitoneal and portacaval lymphadenopathy
with some accompanying stranding, had repeat CT scan 11/26/2024 with IV and oral contrast that showed marked retroperitoneal and additional portacaval and chloé hepatic lymphadenopathy slightly increased and compared to previous study, findings
suspicious for malignancy. She also has mild iron deficiency anemia which seems to be chronic.
Other than the abdominal discomfort, no nausea or vomiting. No heartburn or trouble swallowing. She has chronic constipation since she started Ozempic about a year and a half ago and lost 82 pounds.
No family history of colon cancer colon polyps.
- Right lower quadrant abdominal pain, CT scan showing retroperitoneal, portal hepatic and portal caval lymph nodes suspicious for malignancy
As per IR, lymphadenopathy not amenable for sampling and GI consulted for EUS with biopsy of the portacaval lymph nodes.
Last Ozempic dose 11/20/[address] Dos Santos, she is scheduled for EUS with sampling of the lymph nodes tomorrow.
Oncology on board as well.
Original Note:
Consultation
-
Date/Time Consultation Requested: 11/26/2024; 15:43
Date/Time Consultation Performed: 11/27/2024; 08:15
Requesting Provider: Luis Delvalle MD
Performing Provider: Alicia Oneill MD; Wilbur Monroe MD
Reason for Consultation: Possible biopsy via endoscopy
Medical History
Chief Complaint / HPI
Chief Complaint: Abdominal pain
History of Present Illness:
29 yo F PMH anxiety, depression p/w abdominal pain in RLQ, right flank, and right back.
This first happened last week, and workup in ED disclosed retroperitoneal lymphadenopathy on abdominal CT, raising the concern for malignancy. At that time, she was discharged with outpatient follow-up. However, the patient reports that over the
weekend, there was worsening pain that was sharper, shooting up the back that made it difficult to breathe. For these reasons, she presented to the ED.
The location of the pain is in the RLQ abdomen, right flank, and right back. Alleviates when knees brought to chest, but often flares at night. It is associated with pruritus.
She reports nausea, but denies vomiting. She denies changes to bowel habits, melena, hematochezia. She is on ozempic. She reports that is constipated and has a bowel regimen at home.
She otherwise denies chest pain, dyspnea, dysuria, focal weakness, numbness. She does report occasional migraines.
Past Medical History
Past Medical History: Other (anxiety, depression)
Past Surgical History: None
Social History
Tobacco: Other (former vaping)
Alcohol: None
Drug: None
Personal: Partner
Living: With Family
Employment: Employed
Family History
Family History: Cancer (grandfather, aunts)
Allergies / Home Medications
Allergy/AdvReac Type Severity Reaction Status Date / Time
latex Allergy Rash Verified 11/26/24 06:36
�Medication �Instructions �Recorded
escitalopram oxalate 10 mg tablet 10 mg PO DAILY 06/20/24
(Lexapro)
magnesium glycinate 100 mg (as 100 mg PO DAILY 11/26/24
glycinate) tablet
semaglutide 1 mg/dose (4 mg/3 mL) 1 mg SC WE 11/26/24
subcutaneous pen injector (Ozempic)
Review of Systems
-
History Source: Patient
Constitutional: Reports Other (pruritus)
EENT: Reports No Symptoms
Respiratory: Reports No Symptoms
Cardiac: Reports No Symptoms
Abdomen/GI: Reports Abdominal Pain (RLQ, right flank, right back)
: Reports No Symptoms
Musculoskeletal: Reports Other (right back pain)
Skin: Reports Other (pruritus)
Neurological: Reports No Symptoms
Endocrine: Reports No Symptoms
Hematologic/Lymphatic: Reports No Symptoms
Vital Signs
Temp Pulse Resp BP Pulse Ox
98.4 F 85 17 107/57 98
11/26/24 23:26 11/26/24 23:26 11/26/24 23:26 11/26/24 23:26 11/26/24 23:26
Physical Exam
Exam
General: Comfortable
HEENT: Normocephalic
Respiratory: Clear
Cardiac: Other (no murmurs on my exam)
GI: Soft, Non Distended, Normal Bowel Sounds and Tender (tender to palpation in RLQ, right flank, right back)
Genito-urinary: No Costovertebral Tender
Musculoskeletal: No Edema
Skin: Warm
Neuro: AO x 3 and No Motor Deficits
Psych: Calm
Results
WBC 13.3 10^3/uL (4.8-10.8) H 11/27/24 05:59
Hgb 9.9 g/dL (12.0-16.0) L 11/27/24 05:59
Hct 32.0 % (37.0-47.0) L 11/27/24 05:59
MCV 84.9 fL (81.0-99.0) 11/27/24 05:59
Plt Count 393 10^3/uL (130-400) 11/27/24 05:59
Absolute Neuts (auto) 11.0 10^3/uL (1.4-6.5) H 11/27/24 05:59
Sodium 136 mmol/L (135-145) 11/27/24 05:59
Potassium 4.1 mmol/L (3.5-5.1) 11/27/24 05:59
Chloride 104 mmol/L (98-107) 11/27/24 05:59
Carbon Dioxide 27 mmol/L (22-30) 11/27/24 05:59
BUN 8 mg/dl (7-17) 11/27/24 05:59
Creatinine 0.8 mg/dL (0.6-1.0) 11/27/24 05:59
Calcium 8.7 mg/dl (8.4-10.2) 11/27/24 05:59
Total Bilirubin 0.5 mg/dl (0.2-1.3) 11/27/24 05:59
AST 13 U/L (14-36) L 11/27/24 05:59
ALT 11 U/L (0-35) 11/27/24 05:59
Alkaline Phosphatase 90 U/L (38-126) 11/27/24 05:59
Lipase 85 U/L (23-300) 11/26/24 07:25
Iron: 36 L
TIBC 239 L
% saturation 15 L
Ferritin 120 (wnl)
Diagnostic Image Results:
CT Abdomen Pelvis w IV contrast 11/26/2024:
IMPRESSION:
Marked retroperitoneal as well as additional portacaval and chloé hepatis lymphadenopathy, adenopathy slightly increased in comparison to recent prior study, particularly chloé hepatis component. Findings are again suspicious for malignancy.
Retroaortic left renal vein, congenital variants of normal
Mild hepatosplenomegaly.
Unremarkable appendix.
No intestinal obstruction or free air.
Limited evaluation of intestinal tract with loops of unopacified small bowel and totally unopacified large bowel with moderate volume widespread colonic stool. Unfortunately, small bowel or large bowel lesion cannot be entirely excluded on the basis
of this study.
New small volume simple free fluid in the dependent true pelvis.
Assessment / Plan
-
In summary, 29 yo F PMH anxiety/depression presenting with worsening abdominal pain when previously found to have retroperitoneal lymphadenopathy, concerning for malignancy.
# RLQ abdominal, right flank, right back pain
- Abdominal CT scan shows worsening retroperitoneal lymphadenopathy compared to prior week's scan concerning for malignancy, the rate of reported growth is concerning for aggressive malignancy
- She reports pruritus, which can also point towards a malignancy
- She already has an outpatient appointment scheduled with [facility] on 12/04/2024
- per Heme/Onc note, IR deemed not amenable to biopsy
Plan
- Will check with Dr. Dos Santos if EUS biopsy is technically feasible.
- Ondansetron for anti-nausea
- pain control
- Bowel regimen
- Recommendations are not final until discussed with Dr. Oneill, GI attg
# Anemia of chronic disease
- iron studies showed low serum iron, normal ferritin, low % saturation, and low TIBC.
- No a clear cut classification, but the overall panel is likely consistent with anemia of chronic disease in the setting of potential malignancy
- per uptodate, ferritin < 100ng/mL would indicate iron deficiency in ACD, in this case, iron supplementation is likely not needed
Plan:
- treatment of underlying condition should address the likely anemia of chronic disease
- Recommendations are not final until discussed with Dr. Oneill, GI attg
-
-
Thank you for consultation and allowing me to participate in the patient's care. Please call the concession manager GI physician during the after hours with any questions or concerns.
[2024-11-27] MEDS: COLACE 100 MG PO ×2 (08:51→19:52)
[2024-11-27] MEDS: LEXAPRO 10 MG PO (08:51)
[2024-11-27] MEDS: SENOKOT-S 1 TABLET PO ×2 (08:52→16:04)
[2024-11-27] MEDS: MIRALAX 17 GRAMS PO (08:52)
[2024-11-27] MEDS: TYLENOL 650 MG PO (08:54)
--- NOTE | 2024-11-27 09:56 | W.PN.ONC2 ---
Today's Communication / Plan
-
GI to possible perform endoscopy to obtain biopsy.
Trend labs to monitor for tumor lysis syndrome.
Awaiting flow cytometry results.
Patient to follow up with [facility] 12/04/24.
Impression
Impression
#Abnormal CT imaging- retroperitoneal lymphadenopathy concerning for lymphoma
#RLQ abdominal pain
#Nausea
#Generalized pruritis
Plan
Plan
- Patient is a 29 year old female presenting with RLQ pain since 6 AM this morning; similar episode last week.
- CT results last week and today shows marked retroperitoneal lymphadenopathy, concerning for lymphoma. Other differential include metastatic malignancy or infectious/reactive lymphadenopathy.
- Discussed with patient about imaging findings concerning for possible malignancy such as lymphoma but diagnosis requires tissue confirmation.
- Patient will likely need excision or core needle biopsy. GI has been consulted for endoscopy guided biopsy.
- Patient has anemia (hgb 9.9, low MCV)- iron 37, normal ferritin, transferrin pending- less likely iron deficiency anemia.
- LDH 215, which is a favorable prognostic factor and indicates low progression of disease/no rapid turnover.
-Uric acid normal, K normal -trend labs for tumor lysis syndrome.
- Awaiting flow cytometry results.
- Emphasized importance of keeping the appointment with [facility] on 12/04/24 for further evaluation and management planning.
Subjective/Objective
Subjective
Upon evaluation of patient today, she is feeling well. She reiterates expresses the itching all over the body while actively itching during the conversation. Patient is aware of possible lymphoma diagnosis. No new complaints.
Vital Signs:
Vital Signs
Temp Pulse Resp BP Pulse Ox
98.2 F 92 16 115/67 98
11/27/24 07:27 11/27/24 07:27 11/27/24 07:27 11/27/24 07:27 11/27/24 07:27
Lab Results:
Laboratory Data
WBC 13.3 10^3/uL (4.8-10.8) H 11/27/24 05:59
Hgb 9.9 g/dL (12.0-16.0) L 11/27/24 05:59
Plt Count 393 10^3/uL (130-400) 11/27/24 05:59
eGFR > 60.00 11/27/24 05:59
Physical Exam
HEENT: Moist Mucous Membranes
Cardiology: Normal Sinus Rhythm, S1 and S2
Pulmonary: Clear
GI: Soft and Normal Bowel Sounds
Review of Systems
Review of Systems
Skin: Reports Pruritis
Orders
Orders
Orders From Last 24 Hours
11/26/24 15:43
Consult Gastroenterology [GASTROINTESTINAL CONSULT] Routine
--- NOTE | 2024-11-27 10:38 | CM ---
Addendum entered by Linda Boyd 11/27/24 11:03:
A list of outpatient resources for counseling provided to pt.
Original Note:
Chart Reviewed. Met with pt bedside. Continues with abdominal pain and pain management. Being worked up for possible malignancy. Possible biopsy today
Plan: TBD after workup
[2024-11-27] MEDS: COMPAZINE 5 MG IV ×2 (11:11→19:54)
[2024-11-27 15:00] VITALS: BP 128/63
--- NOTE | 2024-11-27 15:36 | W.PN.HOSP.TC ---
Today's Communication/Plan
-
plan EUS biopsy this week
pain control IV and po
Assessment / Plan
Assessment / Plan
29F with abdominal pain, found to have retroperitoneal lymphadenopathy.
Suspected lymphoma
Intractable right upper quadrant abdominal pain:
CT scan performed shows lymphadenopathy - retroperitoneal, portacaval and chloé hepatis -that is slightly increased compared to 1 week ago, which is concerning for lymphoma. Night sweats for a few day, and has had pruritus for 6 months which is a sx
commonly assc with lymphoma
UA is WNL, lipase is WNL. Liver is mildly enlarged, however LFTs are WNL
Oncology consulted, discussed with Dr. Roth, patient will undergo EUS biopsy Monday, but will not have to stay for results, will have [facility]
Lymphoma panel pending
Regular diet
prn oral oxycodone, IV morphine, IV Zofran. Bowel regimen.
Leukocytosis:
Worsened from 1 week ago
Lactic acid is within normal limits
Suspect this is secondary to lymphoma, workup as per onc
Blood cultures pending
Anxiety/depression:
Continue home Lexapro
Microcytic anemia:
iron panel suggests AoCD (low iron, low TIBC, normal ferritin)
B12 wnl, folate low
Replete if needed
Constipation
Bowel regimen
Weight loss:
Hold home Ozempic
DVT PPx:
Lovenox
Full code
Anticipated Discharge: 24 - 48 hours
Subjective/Interval History
-
Date of Service: November 27, 2024
Pt denies any pain at present, had some overnight which resolved with some pain meds.
Objective Data
-
Labs:
Laboratory Results
11/27/24
05:59
WBC 13.3 H
Hgb 9.9 L
Hct 32.0 L
Plt Count 393
Sodium 136
Potassium 4.1
Chloride 104
Carbon Dioxide 27
BUN 8
Creatinine 0.8
Glucose 93
Calcium 8.7
Total Bilirubin 0.5
AST 13 L
ALT 11
Alkaline Phosphatase 90
Vital Signs:
Vital Signs
Temp Pulse Resp BP Pulse Ox
98.2 F 92 16 115/67 98
11/27/24 07:27 11/27/24 07:27 11/27/24 07:27 11/27/24 07:27 11/27/24 08:15
I&O
11/26/24 11/27/24 11/28/24
06:59 06:59 06:59
Intake Total 120 / 120
Balance 120 / 120
Review of Systems
-
All other systems: Reviewed and negative
Physical Exam
-
General: No Apparent Distress
HEENT: Moist Mucous Membranes, Anicteric and PERRLA
Respiratory: Clear to Auscultation; Negative Wheezes, Rales or Rhonchi
Cardiac: Regular Rhythm and S1/S2; Negative Murmur, Rub or Gallop
GI: Soft, Nontender, Nondistended and Normal Bowel Sounds
Musculoskeletal: No Edema
Skin: Warm and Dry; Negative Rash, Ulcers or Lesions
Neuro: Awake and AO x 3
Hematologic / Lymphatic: No Lymphadenopathy
Psych: Calm
Data Reviewed
-
CT Scan: Report Reviewed by me, Discussed with Physician and Discussed with Patient
Labs: Labs Reviewed by me, Discussed with Physician and Discussed with Patient
[2024-11-27] MEDS: ROXICODONE 5 MG PO (18:18)
[2024-11-27] MEDS: DULCOLAX 10 MG RECTAL (20:44)
[2024-11-27 23:07] VITALS: BP 133/74
[2024-11-28] MEDS: MORPHINE SULFATE 4 MG IV (03:17)
[2024-11-28 07:56] VITALS: BP 113/68
[2024-11-28 08:05] LABS: Hematocrit 29.9 % (37.0-47.0); Hemoglobin 9.4 g/dL (12.0-16.0); Mean Corp Hgb Conc. 31.4 g/dL (33.0-37.0); Mean Corpuscular Volume 83.1 fL (81.0-99.0); Nucleated Red Blood Cells % 0 %; Platelet Count 403 10^3/uL (130-400); Red Cell Dist. Width 14.7 % (11.5-14.5)
[2024-11-28 08:12] LABS: INR 1.13; PT 15.0 Sec (11.4-14.6)
[2024-11-28 08:39] LABS: ALT (SGPT) 12 U/L (0-35); AST (SGOT) 14 U/L (14-36); Albumin 3.6 g/dl (3.5-5.0); Alkaline Phosphatase 93 U/L (38-126); Blood Urea Nitrogen 7 mg/dl (7-17); Calcium 9.0 mg/dl (8.4-10.2); Carbon Dioxide 28 mmol/L (22-30); Chloride 102 mmol/L (98-107); Estimated Creatinine Clearance 124 ml/min; Glucose 89 mg/dl (70-99); Potassium 4.3 mmol/L (3.5-5.1); Sodium 137 mmol/L (135-145); Total Protein 6.7 g/dl (6.3-8.2); eGFR > 60.00
--- NOTE | 2024-11-28 08:55 | W.PN.HOSP.TC ---
Today's Communication/Plan
-
plan EUS biopsy today
pain control po will be ordered on discharge
Assessment / Plan
Assessment / Plan
29F with abdominal pain, found to have retroperitoneal lymphadenopathy.
Suspected lymphoma
Intractable right upper quadrant abdominal pain:
CT scan performed shows lymphadenopathy - retroperitoneal, portacaval and chloé hepatis -that is slightly increased compared to 1 week ago, which is concerning for lymphoma. Night sweats for a few day, and has had pruritus for 6 months which is a sx
commonly assc with lymphoma
UA is WNL, lipase is WNL. Liver is mildly enlarged, however LFTs are WNL
Oncology consulted, discussed with team, patient will undergo EUS biopsy today, but will not have to stay for results, will have [facility]
Lymphoma panel pending
Regular diet
prn oral oxycodone, IV morphine, IV Zofran. Bowel regimen.
Leukocytosis:
Worsened from 1 week ago but now back down to 13.7
Lactic acid is within normal limits
Suspect this is secondary to lymphoma, workup as per onc
Blood cultures ngtd
Anxiety/depression:
Continue home Lexapro
Microcytic anemia:
iron panel suggests AoCD (low iron, low TIBC, normal ferritin)
B12 wnl, folate low
Replete if needed
Constipation
Bowel regimen
Weight loss:
Hold home Ozempic
DVT PPx:
Lovenox
Full code
Anticipated Discharge: Today
Subjective/Interval History
-
Date of Service: November 28, 2024
Patient reports an episode of abdominal pain overnight that was treated with IV morphine
Objective Data
-
Labs:
Laboratory Results
11/28/24
07:26
WBC 13.7 H
Hgb 9.4 L
Hct 29.9 L
Plt Count 403 H
PT 15.0 H
INR 1.13
Sodium 137
Potassium 4.3
Chloride 102
Carbon Dioxide 28
BUN 7
Creatinine 0.8
Glucose 89
Calcium 9.0
Total Bilirubin 0.5
AST 14
ALT 12
Alkaline Phosphatase 93
Vital Signs:
Vital Signs
Temp Pulse Resp BP Pulse Ox
98.2 F 95 18 113/68 97
11/28/24 07:56 11/28/24 07:56 11/28/24 07:56 11/28/24 07:56 11/28/24 07:56
I&O
11/27/24 11/28/24 11/29/24
06:59 06:59 06:59
Intake Total 120 / 120 800 / 800
Balance 120 / 120 800 / 800
Review of Systems
-
All other systems: Reviewed and negative
Physical Exam
-
General: No Apparent Distress
HEENT: Moist Mucous Membranes, Anicteric and PERRLA
Respiratory: Clear to Auscultation; Negative Wheezes, Rales or Rhonchi
Cardiac: Regular Rhythm and S1/S2; Negative Murmur, Rub or Gallop
GI: Soft, Nontender, Nondistended and Normal Bowel Sounds
Musculoskeletal: No Edema
Skin: Warm and Dry; Negative Rash, Ulcers or Lesions
Neuro: Awake and AO x 3
Hematologic / Lymphatic: No Lymphadenopathy
Psych: Calm
Data Reviewed
-
CT Scan: Report Reviewed by me, Discussed with Physician and Discussed with Patient
Labs: Labs Reviewed by me, Discussed with Physician and Discussed with Patient
[2024-11-28] MEDS: LEXAPRO 10 MG PO (08:56)
[2024-11-28] MEDS: COLACE 100 MG PO (08:56)
[2024-11-28] MEDS: TYLENOL 650 MG PO (08:57)
--- NOTE | 2024-11-28 09:31 | W.PN.ONC2 ---
Today's Communication / Plan
-
Lymph node biopsy today via EUS.
Patient to follow up with Dr. Ramos at [facility] 12/04/24
Impression
Impression
#Abnormal CT imaging- retroperitoneal lymphadenopathy concerning for lymphoma
#RLQ abdominal pain
#Generalized pruritis
Plan
Plan
- Patient is a 29 year old female presenting with RLQ pain on arrival; similar episode 1 week before.
- CT results shows marked retroperitoneal lymphadenopathy, concerning for lymphoma. Other differential include metastatic malignancy or infectious/reactive lymphadenopathy.
- Patient aware of imaging findings concerning for possible malignancy such as lymphoma but diagnosis requires biopsy.
- GI consulted. Patient scheduled for lymph node biopsy via EUS today.
- Patient has anemia (hgb 9.4, low MCV)- iron 37, normal ferritin, transferrin pending- less likely iron deficiency anemia.
- LDH 215, which is a favorable prognostic factor and indicates low progression of disease/no rapid turnover.
- Uric acid normal, K normal -trend labs for tumor lysis syndrome.
- Awaiting flow cytometry results.
- Emphasized importance of keeping the appointment with Dr. Rachel Michaels on 12/04/24 for further evaluation and management planning.
Subjective/Objective
Subjective
Upon evaluation of patient today, patient feels well. Patient still has pruritus. She had back pain overnight, but has resolved now. No other new complaints.
Vital Signs:
Vital Signs
Temp Pulse Resp BP Pulse Ox
98.2 F 95 18 113/68 97
11/28/24 07:56 11/28/24 07:56 11/28/24 07:56 11/28/24 07:56 11/28/24 07:56
Lab Results:
Laboratory Data
WBC 13.7 10^3/uL (4.8-10.8) H 11/28/24 07:26
Hgb 9.4 g/dL (12.0-16.0) L 11/28/24 07:26
Plt Count 403 10^3/uL (130-400) H 11/28/24 07:26
PT 15.0 Sec (11.4-14.6) H 11/28/24 07:26
INR 1.13 11/28/24 07:26
eGFR > 60.00 11/28/24 07:26
Physical Exam
HEENT: Moist Mucous Membranes
Cardiology: Normal Sinus Rhythm, S1 and S2
Pulmonary: Clear
GI: Soft and Normal Bowel Sounds
Review of Systems
Review of Systems
Skin: Reports Pruritis
[2024-11-28 12:10] VITALS: BP 105/53; BP_SYST 17
[2024-11-28 12:15] VITALS: BP 120/44; BP_SYST 19
[2024-11-28 12:20] VITALS: BP 120/44; BP_SYST 22
[2024-11-28 12:38] VITALS: BP 106/65
--- NOTE | 2024-11-28 14:24 | W.DCSUMMARY ---
Discharge Summary
Discharge Data
Date of Admission: 11/26/24
Date of Discharge: 11/29/24
Total time spent discharging patient (in min): 31
-
Pending Results: Yes (LN biopsy, cytology)
Hospital Course
Attending physician on day of discharge:
Devika Hussein MD
Admission diagnosis:
Abdominal pain
Discharge diagnosis:
Retroperitoneal lymphadenopathy concerning for lymphoma
Secondary diagnoses:
Anemia
Consultations:
Heme/oncology
GI
Procedures:
EUS:Many enlarged lymph nodes were visualized in the gastrohepatic
ligament (level 18), celiac region (level 20) and chloé hepatis
region. Tissue was obtained from this exam, and results are pending.
However, the endosonographic appearance. Fine needle aspiration
performed.
Hospital course:
Patient was admitted with abdominal pain, treated with IV and oral pain medicine, with relief. Repeat CT showed slightly increased lymphadenopathy compared to 1 week prior, she was seen by heme-onc, and she underwent inpatient EUS/biopsy by GI.
She was discharged home with oncology follow-up.
Discharge disposition:
Home
Discharge Plan
-
Patient Disposition: Home (Routine Discharge)
Discharge Diagnosis/Procedures: Peritoneal lymphadenopathy
Diet: Regular
Referrals:
Magali Avendano PA-C [Family Provider, Internal Medicine]
Paty Ramos DO [Active, Hematology / Oncology] - 12/04/24
Additional Discharge Medication Instructions: You can get over the counter constipation meds - recommend twice daily colace (docusate)
Prescriptions:
New
polyethylene glycol 3350 17 gram Powder In Packet
17 g PO DAILYPRN PRN (Reason: constipation) Qty: 0 0RF
sennosides-docusate sodium [Senna Plus] 8.6-50 mg Tablet
1 tab PO BIDPRN PRN (Reason: constipation) Qty: 0 0RF
docusate sodium 100 mg Capsule
100 mg PO BID Qty: 0 0RF
oxycodone 5 mg Tablet
5 mg PO Q4HPRN PRN (Reason: moderate pain) Qty: 15 0RF
Continued
escitalopram oxalate [Lexapro] 10 mg Tablet
10 mg PO DAILY
magnesium glycinate 100 mg Tablet
100 mg PO DAILY
Discontinued
Ozempic 1 mg/dose (4 mg/3 mL) Pen Injector
1 mg SC WE
Discharge Orders:
Discharge Patient (As Directed); Ordered 11/28/24
Ordered By: Devika Hussein
Discharge Date and Time
Discharge Date/Time: 11/28/24 14:48
Print Language: VINCENTIAN
[2024-11-28 14:28] VITALS: BP 113/62
[2024-11-28] MEDS: ZOFRAN 4 MG IV (14:28)
[2024-11-28] MEDS: FLUZONE (6 mos+) 2025-2026 FORMULA 0.5 ML IM (14:29)
--- NOTE | 2024-11-28 15:17 | CM ---
Pt is discharged to home,no needs.
[2024-11-28 22:46] LABS: Transferrin 171 mg/dL (200-360)
[2024-11-29 08:02] LABS: Source Blood
[2024-12-03 13:33] LABS: tTG IgA Antibody 3.6 EU/ml (0-19); tTG IgG Antibody 9.2 EU/ml (0-19)
== END 2024-11-28 14:48 | disposition home or self-care (01) | DRG 816 ==
LOC: 4 EAST ACU 13:54
PROVIDERS: Internal Medicine Gastroenterology; Nurse Practitioner Adult Health; ADMITTING PHYSICIAN Internal Medicine; CONSULT PHYSICIAN Internal Medicine Gastroenterology; CONSULT PHYSICIAN Internal Medicine Hematology & Oncology; EMERGENCY PHYSICIAN Student in an Organized Health Care Education/Training Program; FAMILY PHYSICIAN Physician Assistant
PROC: 0DBU4ZX Excision of Omentum, Percutaneous Endoscopic Approach, Diagnostic (ICD-10-PCS; 2024-11-28)
DX: R59.0 Localized enlarged lymph nodes (principal); L29.9 Pruritus, unspecified; D64.9 Anemia, unspecified; F32.A Depression, unspecified; F41.9 Anxiety disorder, unspecified; K59.09 Other constipation; Z91.040 Latex allergy status; Z82.49 Family history of ischemic heart disease and other diseases of the circulatory system; Z80.1 Family history of malignant neoplasm of trachea, bronchus and lung; Z80.6 Family history of leukemia; Z80.3 Family history of malignant neoplasm of breast; Z79.899 Other long term (current) drug therapy; D63.8 Anemia in other chronic diseases classified elsewhere; G43.909 Migraine, unspecified, not intractable, without status migrainosus
CPT/HCPCS: 74177; 80053; 81003; 82607; 82728; 82746; 82784; 83516; 83540; 83550; 83605; 83615; 83690; 83735; 84466; 84550; 84703; 85025; 85610; 86231; 87040; 88173; 88305; 90656; 96372; 96374; 96375; 99285; G0008; Q9967

== ENCOUNTER → 2024-12-09 10:28 | Outpatient (REF) | payer OTHER, SELFPAY ==
[2024-12-09 10:42] VITALS: BP 119/69; BP_SYST 79
[2024-12-09 11:41] VITALS: BP 121/66; BP_SYST 75
[2024-12-09 11:55] VITALS: BP 121/66
== END ==
LOC: RADI 10:28
PROVIDERS: ATTENDING PHYSICIAN Internal Medicine Hematology & Oncology; FAMILY PHYSICIAN Physician Assistant
DX: R59.0 Localized enlarged lymph nodes (principal); D52.9 Folate deficiency anemia, unspecified
CPT/HCPCS: 38505; 88305; 88333; 88341; 88342

== ENCOUNTER → 2025-01-13 06:48 | Outpatient (REF) | payer OTHER, SELFPAY ==
[2025-01-13] VITALS (8 sets, daily range): BP systolic 74–123; BP diastolic 56–75
[2025-01-13] MEDS: ANCEF 10 IV (08:13)
== END ==
LOC: RADI 06:48
PROVIDERS: ATTENDING PHYSICIAN Internal Medicine Hematology & Oncology; FAMILY PHYSICIAN Physician Assistant
DX: C81.90 Hodgkin lymphoma, unspecified, unspecified site (principal); D52.9 Folate deficiency anemia, unspecified
CPT/HCPCS: 36561; 76937; 77001; 99152; 99153; C1788

== ENCOUNTER → 2025-01-15 09:44 | Outpatient (REF) | payer OTHER, SELFPAY ==
[2025-01-15 10:54] LABS: Hematocrit 31.1 % (37.0-47.0); Hemoglobin 9.6 g/dL (12.0-16.0); Mean Corp Hgb Conc. 30.9 g/dL (33.0-37.0); Mean Corpuscular Volume 78.9 fL (81.0-99.0); Nucleated Red Blood Cells % 0 %; Platelet Count 413 10^3/uL (130-400); Red Cell Dist. Width 15.8 % (11.5-14.5)
[2025-01-15 11:20] LABS: ALT (SGPT) 13 U/L (0-35); AST (SGOT) 16 U/L (14-36); Albumin 3.7 g/dl (3.5-5.0); Alkaline Phosphatase 97 U/L (38-126); Blood Urea Nitrogen 9 mg/dl (7-17); Calcium 9.1 mg/dl (8.4-10.2); Carbon Dioxide 30 mmol/L (22-30); Chloride 101 mmol/L (98-107); Glucose 121 mg/dl (70-99); Potassium 4.3 mmol/L (3.5-5.1); Sodium 134 mmol/L (135-145); Total Protein 6.8 g/dl (6.3-8.2); eGFR > 60.00
== END ==
LOC: REG 09:44
PROVIDERS: ATTENDING PHYSICIAN Internal Medicine Hematology & Oncology; FAMILY PHYSICIAN Physician Assistant
DX: R59.1 Generalized enlarged lymph nodes (principal); D52.9 Folate deficiency anemia, unspecified; D64.9 Anemia, unspecified; C83.03 Small cell B-cell lymphoma, intra-abdominal lymph nodes; R63.4 Abnormal weight loss; C81.90 Hodgkin lymphoma, unspecified, unspecified site
CPT/HCPCS: 36415; 80053; 85025

== ENCOUNTER 2025-01-17 23:31 | Emergency (ER) | payer OTHER, SELFPAY ==
[2025-01-17 23:35] VITALS: BP 144/84
[2025-01-18 00:34] VITALS: BMI 33.5
[2025-01-18 02:00] VITALS: BP 131/73
[2025-01-18] MEDS: PROTONIX IV 40 MG IV (02:02)
[2025-01-18] MEDS: NSS 1000 IV (02:08)
[2025-01-18] MEDS: ATIVAN 0.5 MG IV ×2 (02:08→04:22)
[2025-01-18 02:12] LABS: Hematocrit 29.8 % (37.0-47.0); Hemoglobin 9.6 g/dL (12.0-16.0); Mean Corp Hgb Conc. 32.2 g/dL (33.0-37.0); Mean Corpuscular Volume 76.8 fL (81.0-99.0); Nucleated Red Blood Cells % 0 %; Platelet Count 283 10^3/uL (130-400); Red Cell Dist. Width 15.8 % (11.5-14.5)
[2025-01-18 02:23] LABS: COVID-19 Antigen Negative (Negative)
[2025-01-18 02:24] LABS: ALT (SGPT) 16 U/L (0-35); AST (SGOT) 18 U/L (14-36); Albumin 4.0 g/dl (3.5-5.0); Alkaline Phosphatase 110 U/L (38-126); Blood Urea Nitrogen 18 mg/dl (7-17); Calcium 9.2 mg/dl (8.4-10.2); Carbon Dioxide 24 mmol/L (22-30); Chloride 105 mmol/L (98-107); Estimated Creatinine Clearance > 125 ml/min; Glucose 100 mg/dl (70-99); Magnesium 2.3 mg/dl (1.6-2.3); Potassium 4.2 mmol/L (3.5-5.1); Sodium 136 mmol/L (135-145); Total Protein 7.3 g/dl (6.3-8.2); eGFR > 60.00
--- NOTE | 2025-01-18 02:34 | ED.GENMED ---
History of Present Illness
<Jordan Love MD - Last Filed: 01/18/25 19:35>
General
Chief Complaint: Abdominal Symptoms
Source: patient and family
Exam Limitations: none
Time Seen by Provider: 01/18/25 01:12
Nursing documentation reviewed up to this point in time: agreed with
History of Present Illness
History of Present Illness:
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
Patient reports chills sensation. Denies fever. Denies diarrhea. Denies coughing. Denies chest pain or shortness of breath.
Past History
<Jordan Love MD - Last Filed: 01/18/25 19:35>
Past History
ED Past Medical History: Other (Gastritis); Negative None, Asthma, HTN, Hypercholesterolemia or NIDDM
ED Past Surgical History: and Other ([place] teeth removed in october)
Social History
Tobacco: Non-smoker
Alcohol: Occasional (Rare)
Personal: Single
Living: with family
Employment: Employed (Grocery store)
Family History
Family History: Other (Noncontributory)
Review of Systems
<Jordan Love MD - Last Filed: 01/18/25 19:35>
Review of Systems
Allergies reviewed?: Yes
All Other Systems: ROS reviewed and negative except as documented in HPI and ROS
Constitutional: Reports chills; Denies fever
EENT: Reports no symptoms
Respiratory: Reports no symptoms
Cardiac: Reports no symptoms
ABD/GI: Reports abdominal pain and nausea; Denies diarrhea
: Reports no symptoms
Musculoskeletal: Reports no symptoms
Skin: Reports no symptoms
Neurological: Reports no symptoms
Phy Exam
<Jordan Love MD - Last Filed: 01/18/25 19:35>
Physical Exam
Physical Exam:
Physical Exam
General: moderate distress, not acutely ill. afebrile
Head: nc/at. eomi
Neck: supple. normal range of motion
Heart: s1/s2 regular rate and rhythm
Lungs: no acute respiratory distress. clear bilaterally
Abdomen: normal bowel sounds. mild diffuse tenderness to palpation
Neuro: alert and oriented x 3. no focal neurological deficits
Skin: no rash
Psychiatric: well kept. interactive and cooperative
Extremities: no edema. no calf tenderness.
Course
<Jordan Love MD - Last Filed: 01/18/25 19:35>
Orders/Labs/Results
Orders:
Orders
01/18/25 01:35
0.9% Sodium Chloride 1000 ml [Nss] 1,000 ml IV BOLUS
HYDROmorphone [Dilaudid] 0.5 mg IV NOW STA
Pantoprazole [Protonix IV] 40 mg IV NOW STA
01/18/25 01:55
COVID-19 Antigen Urgent
Source: Nasal Swab
Complete Blood Count/With Diff Urgent
Comprehensive Metabolic Panel Urgent
HCG, Serum Qualitative Screen Urgent
Comment: ADD ON
Lactic Acid Q4H
Comment: CANCEL 2nd LACTIC ACID IF 1st LACTIC ACID IS LESS THAN 2
Magnesium Urgent
Blood Culture Q30M
BATSHEVA Source: Blood/Venous
Specimen Description:
Influenza A+B Rapid Molecular Urgent
BATSHEVA Source: Nasal Swab
Specimen Description:
01/18/25 01:59
Electrocardiogram (*1) Urgent
Reason for Study: QTc Monitoring
EKG- Treatment ONCE
01/18/25 02:00
Lorazepam [Ativan] 0.5 mg IV NOW STA
Trimethobenzamide [Tigan] 200 mg IM NOW STA
01/18/25 02:16
Add On- LAB Urgent
Tests Added?: serum b-hcg, qualitative
CR Obstruct Series W/pa Chest Urgent
Comment:
Reason For Exam: abd pain
01/18/25 02:20
Blood Culture Q30M
BATSHEVA Source: Blood/Venous
Specimen Description:
01/18/25 03:29
Urinalysis Reflex To Culture Urgent
Date Specimen was Collected: 01/18/25
Time Specimen was Collected: 03:28
Urine Microscopic Reflex Cult Urgent
Urine Culture Urgent
BATSHEVA Source: U
Specimen Description:
Date Specimen was Collected: 01/18/25
Time Specimen was Collected: 03:28
01/18/25 04:11
Lorazepam [Ativan] 0.5 mg IV NOW STA
Abnormal Lab Results
01/18/25 01/18/25
01:55 03:29
WBC 15.7 H 10^3/uL
(4.8-10.8)
RBC 3.88 L 10^6/uL
(4.20-5.40)
Hgb 9.6 L g/dL
(12.0-16.0)
Hct 29.8 L %
(37.0-47.0)
MCV 76.8 L fL
(81.0-99.0)
MCH 24.7 L pg
(27.0-31.0)
MCHC 32.2 L g/dL
(33.0-37.0)
RDW 15.8 H %
(11.5-14.5)
MPV 10.9 H fL
(7.4-10.4)
Abs Immat Gran (auto) 0.1 H 10^3/uL
(0-0.05)
Absolute Neuts (auto) 13.6 H 10^3/uL
(1.4-6.5)
Immature Gran % 0.7 H %
(0-0.5)
Neutrophils % 86.9 H %
(42.2-75.2)
Lymphocytes % 8.7 L %
(20.5-51.1)
BUN 18 H mg/dl
(7-17)
Glucose 100 H mg/dl
(70-99)
Leukocyte Esterase Rfl 1+ A
(Negative)
Urine Bacteria (Reflex) Few A
(Negative)
01/18/25 01:55
01/18/25 01:55
Vital Signs
Initial and Last Documented VS:
Initial Vital Signs
Temp Pulse Resp BP Pulse Ox
97.5 F 67 16 144/84 99
01/17/25 23:35 01/17/25 23:35 01/17/25 23:35 01/17/25 23:35 01/17/25 23:35
Last Documented Vital Signs
Temp Pulse Resp BP Pulse Ox
97.6 F 66 14 105/61 97
01/18/25 06:09 01/18/25 06:09 01/18/25 06:09 01/18/25 06:09 01/18/25 06:09
<Lauren Dixon, DO - Last Filed: 01/18/25 07:34>
Orders/Labs/Results
Orders:
Orders
01/18/25 01:35
0.9% Sodium Chloride 1000 ml [Nss] 1,000 ml IV BOLUS
HYDROmorphone [Dilaudid] 0.5 mg IV NOW STA
Pantoprazole [Protonix IV] 40 mg IV NOW STA
01/18/25 01:55
COVID-19 Antigen Urgent
Source: Nasal Swab
Complete Blood Count/With Diff Urgent
Comprehensive Metabolic Panel Urgent
HCG, Serum Qualitative Screen Urgent
Comment: ADD ON
Lactic Acid Q4H
Comment: CANCEL 2nd LACTIC ACID IF 1st LACTIC ACID IS LESS THAN 2
Magnesium Urgent
Blood Culture Q30M
BATSHEVA Source: Blood/Venous
Specimen Description:
Influenza A+B Rapid Molecular Urgent
BATSHEVA Source: Nasal Swab
Specimen Description:
01/18/25 01:59
Electrocardiogram (*1) Urgent
Reason for Study: QTc Monitoring
EKG- Treatment ONCE
01/18/25 02:00
Lorazepam [Ativan] 0.5 mg IV NOW STA
Trimethobenzamide [Tigan] 200 mg IM NOW STA
01/18/25 02:16
Add On- LAB Urgent
Tests Added?: serum b-hcg, qualitative
CR Obstruct Series W/pa Chest Urgent
Comment:
Reason For Exam: abd pain
01/18/25 02:20
Blood Culture Q30M
BATSHEVA Source: Blood/Venous
Specimen Description:
01/18/25 03:29
Urinalysis Reflex To Culture Urgent
Date Specimen was Collected: 01/18/25
Time Specimen was Collected: 03:28
Urine Microscopic Reflex Cult Urgent
Urine Culture Urgent
BATSHEVA Source: U
Specimen Description:
Date Specimen was Collected: 01/18/25
Time Specimen was Collected: 03:28
01/18/25 04:11
Lorazepam [Ativan] 0.5 mg IV NOW STA
Abnormal Lab Results
01/18/25 01/18/25
01:55 03:29
WBC 15.7 H 10^3/uL
(4.8-10.8)
RBC 3.88 L 10^6/uL
(4.20-5.40)
Hgb 9.6 L g/dL
(12.0-16.0)
Hct 29.8 L %
(37.0-47.0)
MCV 76.8 L fL
(81.0-99.0)
MCH 24.7 L pg
(27.0-31.0)
MCHC 32.2 L g/dL
(33.0-37.0)
RDW 15.8 H %
(11.5-14.5)
MPV 10.9 H fL
(7.4-10.4)
Abs Immat Gran (auto) 0.1 H 10^3/uL
(0-0.05)
Absolute Neuts (auto) 13.6 H 10^3/uL
(1.4-6.5)
Immature Gran % 0.7 H %
(0-0.5)
Neutrophils % 86.9 H %
(42.2-75.2)
Lymphocytes % 8.7 L %
(20.5-51.1)
BUN 18 H mg/dl
(7-17)
Glucose 100 H mg/dl
(70-99)
Leukocyte Esterase Rfl 1+ A
(Negative)
Urine Bacteria (Reflex) Few A
(Negative)
01/18/25 01:55
01/18/25 01:55
Vital Signs
Initial and Last Documented VS:
Initial Vital Signs
Temp Pulse Resp BP Pulse Ox
97.5 F 67 16 144/84 99
01/17/25 23:35 01/17/25 23:35 01/17/25 23:35 01/17/25 23:35 01/17/25 23:35
Last Documented Vital Signs
Temp Pulse Resp BP Pulse Ox
97.6 F 66 14 105/61 97
01/18/25 06:09 01/18/25 06:09 01/18/25 06:09 01/18/25 06:09 01/18/25 06:09
<Jordan Love MD - Last Filed: 01/18/25 19:35>
*Pulse Oximetry
SaO2: 99
Oxygen Mode of Delivery: Room air
*EKG
Interpreted by ED Provider?: Yes
EKG Intrepretation Date: 01/18/25
Heart Rate: 62
Rate: normal
Rhythm: sinus
[place]: normal axis
Interval: normal interval
QRS Pattern: normal QRS
<Lauren Dixon DO - Last Filed: 01/18/25 07:34>
*Pulse Oximetry
Patient hypoxic: no
*Critical Care Note
Total Time (30-74mins, 75-104mins- exclusive of procedures): Not Applicable
<Lauren Dixon DO - Last Filed: 01/18/25 07:34>
Update Note
Update Note:
05:35
After an additional dose of IV Ativan, patient remains abdominal pain free. Nausea has markedly improved. She has had no further vomiting and has been tolerating sips of water.
Eager to be discharged to home.
Recommend continuing with clear liquids, advance to soft foods this afternoon as tolerated.
Will add a small prescription for lorazepam to take twice daily as needed for nausea.
Continue Percocet as needed for pain.
If this is ineffective, if intractable vomiting, intractable pain recur, prompt return to the ER for further evaluation.
Plan for prompt follow-up with oncology.
ED Attending Note
<Jordan Love MD - Last Filed: 01/18/25 19:35>
-
Portions of this chart may have been created with voice recognition software.� Occasional wrong word or��sound alike� substitutions may have occurred due to the inherent limitations of voice recognition software.
Discharge Plan
Departure
Patient Disposition: Home (Routine Discharge)
Date of Disposition: 01/18/25
Time of Disposition: 05:44
Patient with high blood pressure during this ER visit?: No
Condition: Good
Discharge Problem:
Chemotherapy related nausea and vomiting
Instructions: Clear Liquid Diet
Prescriptions:
New
lorazepam [Ativan] 0.5 mg tablet
0.5 mg PO BID PRN (Reason: nausea and vomiting) Qty: 8 0RF
No Action
escitalopram oxalate [Lexapro] 10 mg Tablet
10 mg PO DAILY
polyethylene glycol 3350 17 gram Powder In Packet
17 g PO DAILYPRN PRN (Reason: constipation) Qty: 0 0RF
sennosides-docusate sodium [Senna Plus] 8.6-50 mg Tablet
1 tab PO BIDPRN PRN (Reason: constipation) Qty: 0 0RF
oxycodone 5 mg Tablet
5 mg PO Q4HPRN PRN (Reason: moderate pain) Qty: 15 0RF
folic acid 1 mg Tablet
1 mg PO DAILY
docusate sodium 100 mg capsule
100 mg PO BID PRN (Reason: constipation)
Referrals:
Magali Avendano PA-C [Family Provider, Internal Medicine]
Paty Ramos DO [Active, Hematology / Oncology] - Call in 1-3 days for appt
Interventions
Interventions:
*Risk Screen - Suicide Last Done: 01/17/25 23:35
*General Assessment Last Done: 01/18/25 00:34
*Neglect/Abuse Screening Last Done: 01/17/25 23:35
*ED COVID-19 Vaccine History Last Done: 01/17/25 23:35
*ED Influenza Vaccine History Last Done: 01/17/25 23:35
[facility] Fall Risk Assessment Tool Last Done: 01/18/25 01:49
*Nursing Disposition Last Done: 01/18/25 06:09
OO-Vfisdq-Vynweqofrp Assessment Last Done: 01/18/25 02:47
Discharge Date and Time
Discharge Date/Time: 01/18/25 06:10
Print Language: MONEGASQUE
[2025-01-18] MEDS: DILAUDID 0.5 MG IV (02:37)
[2025-01-18 02:38] LABS: HCG, Serum Qualitative Screen Negative
[2025-01-18] MEDS: TIGAN 200 MG IM (02:48)
[2025-01-18 03:00] VITALS: BP 123/70
[2025-01-18 03:37] LABS: Urine Character Clear (Clear)
[2025-01-18 04:00] VITALS: BP 125/77
[2025-01-18 05:00] VITALS: BP 105/61
[2025-01-18 05:06] LABS: Urine Squamous Cell >30 /LPF (Few)
[2025-01-18 05:07] LABS: Urine Red Blood Cell 0-2 /HPF (0-2); Urine Urothelial Cell 0-2 /LPF (FEW)
[2025-01-18 06:09] VITALS: BP 105/61
== END 2025-01-18 06:10 | disposition home or self-care (01) ==
LOC: EMR 23:31
PROVIDERS: EMERGENCY PHYSICIAN Emergency Medicine; FAMILY PHYSICIAN Physician Assistant
DX: R11.2 Nausea with vomiting, unspecified (principal); T45.1X5A Adverse effect of antineoplastic and immunosuppressive drugs, initial encounter; R10.9 Unspecified abdominal pain; X58.XXXA Exposure to other specified factors, initial encounter; C85.90 Non-Hodgkin lymphoma, unspecified, unspecified site; E11.9 Type 2 diabetes mellitus without complications; I10 Essential (primary) hypertension; J45.909 Unspecified asthma, uncomplicated
CPT/HCPCS: 96374; 96375; 96376; 96372; 96361; 99284; 74022; 80053; 81003; 81015; 83605; 83735; 84703; 85025; 87040; 87086; 87502; 87811; 93005

== ENCOUNTER 2025-01-23 20:49 | Emergency (ER) | payer OTHER, SELFPAY ==
[2025-01-23 20:54] VITALS: BP 131/81
[2025-01-23 21:17] LABS: Hematocrit 31.2 % (37.0-47.0); Hemoglobin 9.8 g/dL (12.0-16.0); Mean Corp Hgb Conc. 31.4 g/dL (33.0-37.0); Mean Corpuscular Volume 77.8 fL (81.0-99.0); Platelet Count 320 10^3/uL (130-400); Red Cell Dist. Width 15.3 % (11.5-14.5)
[2025-01-23 21:19] LABS: INR 1.10; PT 14.0 Sec (11.4-14.6)
[2025-01-23 21:28] LABS: Nucleated Red Blood Cells % 0 %
[2025-01-23 21:36] VITALS: BP 121/58
[2025-01-23 21:36] LABS: HCG, Serum Qualitative Screen Negative
[2025-01-23 21:38] VITALS: BMI 33.2
[2025-01-23 21:39] LABS: ALT (SGPT) 13 U/L (0-35); AST (SGOT) 15 U/L (14-36); Albumin 4.0 g/dl (3.5-5.0); Alkaline Phosphatase 72 U/L (38-126); Blood Urea Nitrogen 13 mg/dl (7-17); Calcium 9.3 mg/dl (8.4-10.2); Carbon Dioxide 27 mmol/L (22-30); Chloride 103 mmol/L (98-107); Estimated Creatinine Clearance 122 ml/min; Glucose 89 mg/dl (70-99); Potassium 4.4 mmol/L (3.5-5.1); Sodium 135 mmol/L (135-145); Total Protein 7.1 g/dl (6.3-8.2); eGFR > 60.00
[2025-01-23 21:50] LABS: Troponin I < 0.012 ng/ml
[2025-01-23 22:00] VITALS: BP 114/77
[2025-01-23 23:00] VITALS: BP 117/75
[2025-01-24] VITALS: BP 123/78
[2025-01-24 01:00] VITALS: BP 125/68
[2025-01-24] MEDS: TYLENOL 1000 MG PO (01:38)
[2025-01-24 02:00] VITALS: BP 126/68
[2025-01-24 02:07] LABS: Troponin I < 0.012 ng/ml
--- NOTE | 2025-01-24 02:54 | ED.GENMED ---
History of Present Illness
General
Chief Complaint: Chest Pain
Source: patient
Exam Limitations: none
Time Seen by Provider: 01/23/25 22:12
Nursing documentation reviewed up to this point in time: agreed with
History of Present Illness
History of Present Illness:
Note:
CHIEF COMPLAINT(S)
Chest pain and associated symptoms.
HISTORY OF PRESENT ILLNESS
The patient is a 29-year-old female who presents with a chief complaint of chest pressure that began this morning as the patient was waking up. The chest pain is described as intermittent, and it occasionally becomes sharper, especially during
physical exertion, such as when doing laundry. A significant symptom accompanying the chest pain is nausea, which persisted throughout the day. The patient reports that she consulted her oncologist, Dr. Ramos, who recommended an evaluation to rule
out a potential pulmonary embolism. The patient was recently diagnosed with Hodgkins lymphoma, for which she underwent her first round of chemotherapy a week ago. Initial symptoms related to this diagnosis included general pruritus, enlarged lymph
nodes, bone marrow involvement, and stomach pain due to liver enlargement. The patient denies current shortness of breath, and maintains that the intermittent chest pain is the most concerning symptom.
ADDITIONAL HISTORY OBTAINED FROM SOURCES OTHER THAN THE PATIENT
Per the patients oncologist, Dr. Ramos, further evaluation is suggested to rule out any potential pulmonary embolism connected to the patients symptomatology.
CHRONIC MEDICAL CONDITIONS SIGNIFICANTLY AFFECTING CARE
Hodgkins lymphoma with recent chemotherapy treatment.
SOCIAL DETERMINANTS AFFECTING HEALTH
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
PHYSICAL EXAM
General: Alert, no acute distress.
Skin: Warm, dry. Evidence of scratch henry observed on the back.
Head: Normocephalic, atraumatic.
Neck: Supple, trachea midline.
Eye Ears, nose, mouth and throat: Oral mucosa moist.
Cardiovascular: Normal peripheral perfusion, no edema.
Respiratory: Respirations are non-labored.
Gastrointestinal: Abdomen nondistended.
Back: Normal range of motion, normal alignment.
Musculoskeletal: Normal range of motion, normal strength.
Neurological: Alert and oriented to person, place, time, and situation, no focal neurological deficit observed.
Psychiatric: Cooperative, appropriate mood & affect.
PLAN
Evaluate for potential pulmonary embolism via computed tomography (CT) scan as per oncologists recommendation. Monitor cardiac enzymes and continue symptomatic care for chest pain and nausea.
DIFFERENTIAL DIAGNOSIS
The Differential Diagnosis includes, in no particular order and is not limited to:
1. Pulmonary embolism
2. Costochondritis
3. Acute myocardial infarction
4. Pericarditis
5. Aortic dissection
6. Pneumonia
7. Panic attack
8. Gastroesophageal reflux disease (GERD)
9. Pleural effusion
10. Musculoskeletal chest pain
Disposition:
SUMMARY OF ENCOUNTER
The patient, a 29-year-old female recently diagnosed with Hodgkins lymphoma, presents to the emergency department with 12 hours of intermittent chest pain characterized by pressure that intensified upon physical exertion. She also reported
accompanying nausea but denied shortness of breath. The patient had consulted her oncologist, who recommended further evaluation to rule out a pulmonary embolism, following her first round of chemotherapy a week ago. In the emergency department, a
computed tomography (CT) scan of the chest was performed to assess for a pulmonary embolism, which returned negative. Laboratory work, as well as an electrocardiogram (EKG), were reported normal, and a D-dimer test was negative. The patient
experienced reduced chest pain when treated with acetaminophen (Tylenol). She was observed ambulating around the department without the return of symptoms or any drop in her pulse oximetry.
DISPOSITION
Discharge.
ASSESSMENT
The working diagnosis is costochondritis.
PLAN
The patient will be discharged with recommendations for symptomatic care for her chest pain and follow-up with her oncologist for further evaluation and management of her underlying Hodgkins lymphoma.
INDEPENDENT REVIEW OF LABS AND INTERPRETATION OF TESTS
My independent review of the CT scan of the chest shows no evidence of a pulmonary embolism.
My independent review of the EKG is normal.
My independent review of the laboratory tests indicates normal results and a negative D-dimer test.
PATIENT EDUCATION AND COUNSELING
The patient was informed about the working diagnosis of costochondritis and reassured that her chest symptoms are likely related to this condition rather than a pulmonary embolism. Advice on managing discomfort with [id number] medications and
lifestyle adjustments was provided.
FOLLOW-UP INSTRUCTIONS
The patient is advised to follow up with her oncologist as scheduled to continue her monitoring and treatment plan for Hodgkins lymphoma.
MEDICATION RECONCILIATION
Acetaminophen (Tylenol) was administered for chest pain relief.
MEDICAL DECISION MAKING
-Complexity of Data Reviewed: Chronic conditions affecting care include Hodgkins lymphoma with recent chemotherapy treatment. Differential Diagnosis considered includes Pulmonary embolism, Costochondritis, Acute myocardial infarction, Pericarditis,
Aortic dissection, Pneumonia, Panic attack, Gastroesophageal reflux disease (GERD), Pleural effusion, Musculoskeletal chest pain.
-Data:
Category 1
Non-emergency department records reviewed, if applicable.
Clinical information was obtained from an independent historian: The patients oncologist recommended further evaluation for potential pulmonary embolism.
Category 2
My independent interpretation of [EKG, CT scan]
CT scan confirmed no pulmonary embolism.
EKG results were normal.
-Risk:
Prescription drug management or therapy requiring monitoring for toxicity.
Decisions regarding diagnostic testing with risks were made, particularly for CT imaging.
Consideration of Admission/Observation: Escalation of care, including admission/observation, was considered given the complexity and risk of the patients presenting complaint, exam findings, and/or their underlying comorbidities. However,
ultimately, I feel the patient is safe for outpatient management with close follow-up. Reasoning: Work-up is reassuring, does not reveal any acute life/organ-threatening processes, patients symptoms are well controlled upon reevaluation,
reexamination is reassuring, vitals are stable, patient agreeable with discharge, and reliable for follow-up.
DIAGNOSIS
- Costochondritis (M94.0)
Past History
Past History
ED Past Medical History: Other (Gastritis); Negative None, Asthma, HTN, Hypercholesterolemia or NIDDM
ED Past Surgical History: and Other ([place] teeth removed in october)
Social History
Tobacco: Non-smoker
Alcohol: Occasional (Rare)
Personal: Single
Living: with family
Employment: Employed (Grocery store)
Family History
Family History: Other (Noncontributory)
Phy Exam
Physical Exam
Physical Exam:
.
Scores
Heart Score for Chest Pain Patients
STEMI patient?: No
History: Slightly or Non-Suspicious
ECG: Normal
Age: </= 45 years
Risk Factors: No Risk Factors
Troponin: </= Normal Limit
Heart Score for Chest Pain Patients: 0
Heart Score Risk: 2.5% MACE over next 6 weeks
Course
Orders/Labs/Results
Orders:
Orders
01/23/25 20:50
EKG [Electrocardiogram (*1)] Urgent
Reason for Study: Chest Pain
EKG- Treatment ONCE
01/23/25 20:57
Test Result ONCE
01/23/25 20:59
Complete Blood Count/With Diff Urgent
Comprehensive Metabolic Panel Urgent
HCG, Serum Qualitative Screen Urgent
Comment: Notify provider if positive test present
Prothrombin Time Urgent
Troponin I Urgent
01/23/25 22:34
CT Chest PE Study Urgent
Comment:
Reason For Exam: ca, cp , dyspnea
01/24/25 01:33
Troponin I Urgent
01/24/25 01:35
Acetaminophen [Tylenol] 1,000 mg PO NOW STA
01/24/25 02:58
Ketorolac [Toradol] 15 mg IV NOW STA
Abnormal Lab Results
01/23/25
20:59
WBC 2.5 L 10^3/uL
(4.8-10.8)
RBC 4.01 L 10^6/uL
(4.20-5.40)
Hgb 9.8 L g/dL
(12.0-16.0)
Hct 31.2 L %
(37.0-47.0)
MCV 77.8 L fL
(81.0-99.0)
MCH 24.4 L pg
(27.0-31.0)
MCHC 31.4 L g/dL
(33.0-37.0)
RDW 15.3 H %
(11.5-14.5)
MPV 11.0 H fL
(7.4-10.4)
Absolute Neuts (auto) 1.1 L 10^3/uL
(1.4-6.5)
Absolute Lymphs (auto) 1.1 L 10^3/uL
(1.2-3.4)
Immature Gran % 0.8 H %
(0-0.5)
01/23/25 20:59
01/23/25 20:59
Vital Signs
Initial and Last Documented VS:
Initial Vital Signs
Temp Pulse Resp BP Pulse Ox
98.2 F 83 16 131/81 99
01/23/25 20:54 01/23/25 20:54 01/23/25 20:54 01/23/25 20:54 01/23/25 20:54
Last Documented Vital Signs
Temp Pulse Resp BP Pulse Ox
98.2 F 63 15 127/60 97
01/23/25 20:54 01/24/25 03:00 01/24/25 03:00 01/24/25 03:00 01/24/25 02:57
*Radiology
Radiology exam reviewed: radiology read reviewed
*Pulse Oximetry
SaO2: 97
Oxygen Mode of Delivery: Room air
Patient hypoxic: no
*Critical Care Note
Total Time (30-74mins, 75-104mins- exclusive of procedures): Not Applicable
ED Attending Note
-
Portions of this chart may have been created with voice recognition software.� Occasional wrong word or��sound alike� substitutions may have occurred due to the inherent limitations of voice recognition software.
Discharge Plan
Departure
Patient Disposition: Home (Routine Discharge)
Date of Disposition: 01/24/25
Time of Disposition: 02:56
Patient with high blood pressure during this ER visit?: Yes
Condition: Fair
Discharge Problem:
Chest pain, Costochondritis
Instructions: Costochondritis, Chest Pain PCP Follow Up
Prescriptions:
New
diclofenac sodium 75 mg tablet,delayed release (DR/EC)
75 mg PO BID Qty: 10 0RF
No Action
escitalopram oxalate [Lexapro] 10 mg Tablet
10 mg PO DAILY
polyethylene glycol 3350 17 gram Powder In Packet
17 g PO DAILYPRN PRN (Reason: constipation) Qty: 0 0RF
sennosides-docusate sodium [Senna Plus] 8.6-50 mg Tablet
1 tab PO BIDPRN PRN (Reason: constipation) Qty: 0 0RF
oxycodone 5 mg Tablet
5 mg PO Q4HPRN PRN (Reason: moderate pain) Qty: 15 0RF
folic acid 1 mg Tablet
1 mg PO DAILY
docusate sodium 100 mg capsule
100 mg PO BID PRN (Reason: constipation)
lorazepam [Ativan] 0.5 mg tablet
0.5 mg PO BID PRN (Reason: nausea and vomiting) Qty: 8 0RF
Referrals:
Magali Avendano PA-C [Family Provider, Internal Medicine]
Activity Restrictions/Additional Instructions:
Your prescriptions were sent electronically to the pharmacy that you specified.
Thank You for choosing [facility].
It was a pleasure meeting you and taking part in your care. We hope for your continued healing and wellness.
Please read discharge instructions in their entirety. However, they are for general education and may not describe your exact diagnosis at discharge. Information on your ER visit and medical conditions were discussed with you along with appropriate
follow up information...
If indicated, please take your medications as instructed and indicated on discharge paperwork.
Please schedule a follow up appointment as directed. Call to schedule an appointment
Please return to the emergency department with ANY change in, persisting, or worsening of symptoms. If any of your symptoms do not improve, or persist, or become more severe within 6-12 hours, please return to the emergency department for further
care.
Please return to the emergency department if you develop a headache, neck pain/stiffness, fever greater than 100.4F, chest pain, shortness of breath, persistent nausea, vomiting, slurred speech, difficulty walking, numbness/tingling, weakness, signs
of infection or any other symptoms that are worrisome to you.
If you have any questions or concerns please do not hesitate to call the Hospital at .
Interventions
Interventions:
*Risk Screen - Suicide Last Done: 01/23/25 20:54
*General Assessment Last Done: 01/23/25 21:38
*Neglect/Abuse Screening Last Done: 01/23/25 20:54
*ED COVID-19 Vaccine History Last Done: 01/23/25 21:38
*ED Influenza Vaccine History Last Done: 01/23/25 21:38
[facility] Fall Risk Assessment Tool Last Done: 01/23/25 21:31
*Nursing Disposition Last Done: 01/24/25 03:29
ED- Cardiac Assessment Last Done: 01/23/25 21:39
Discharge Date and Time
Discharge Date/Time: 01/24/25 03:29
Print Language: INDONESIAN
[2025-01-24 03:00] VITALS: BP 127/60
[2025-01-24] MEDS: TORADOL 15 MG IV (03:01)
== END 2025-01-24 03:29 | disposition home or self-care (01) ==
LOC: EMR 20:49
PROVIDERS: Emergency Medicine; EMERGENCY PHYSICIAN Student in an Organized Health Care Education/Training Program; FAMILY PHYSICIAN Physician Assistant
DX: M94.0 Chondrocostal junction syndrome [Tietze] (principal); R03.0 Elevated blood-pressure reading, without diagnosis of hypertension; C81.90 Hodgkin lymphoma, unspecified, unspecified site
CPT/HCPCS: 99284; 96374; 71275; 80053; 84484; 84703; 85025; 85610; 93005; Q9967

== ENCOUNTER → 2025-01-27 11:02 | Outpatient (REF) | payer OTHER, SELFPAY | LOC: HWRCS 11:02 | PROVIDERS: ATTENDING PHYSICIAN Internal Medicine Hematology & Oncology; FAMILY PHYSICIAN Physician Assistant | DX: R59.1 Generalized enlarged lymph nodes (principal); D52.9 Folate deficiency anemia, unspecified; D64.9 Anemia, unspecified | CPT/HCPCS: 93306 ==

== ENCOUNTER 2025-02-07 22:30 | Emergency (ER) | payer OTHER, SELFPAY ==
[2025-02-07 22:32] VITALS: BP 139/84
--- NOTE | 2025-02-07 23:04 | ED.GENMED ---
History of Present Illness
General
Chief Complaint: Headache
Source: patient
Exam Limitations: none
Time Seen by Provider: 02/07/25 22:52
Nursing documentation reviewed up to this point in time: agreed with
History of Present Illness
History of Present Illness:
Note:
CHIEF COMPLAINT(S)
Headache
HISTORY OF PRESENT ILLNESS
The patient is a 29-year-old female with a history of Hodgkins disease, presenting with a headache that has persisted for the past five days. The headache was described as having increased in intensity approximately two and a half hours prior to the
visit when the patient was sitting. The patient described the pain as located at the back of the head. She mentions having a history of migraines, but notes that this headache feels somewhat different, with characteristic throbbing, particularly
upon standing. The headache was accompanied by dizziness, though the patient confirmed she felt well enough to drive herself to the clinic. The patient consumed a Caesar salad around 6:00 PM and reported some diarrhea but no vomiting. She has not
had any previous imaging studies of her head, such as CT or MRI, but agrees to undergo one due to her medical history of Hodgkins disease.
SOCIAL HISTORY
The patien
PHYSICAL EXAM
General: Alert, no acute distress.
Skin: Warm, dry.
Head: Normocephalic, atraumatic.
Neck: Supple, trachea midline.
Eye, Ears, Nose, Mouth, and Throat: Oral mucosa moist.
Cardiovascular: Normal peripheral perfusion, No edema.
Respiratory: Respirations are non-labored.
Gastrointestinal: Abdomen nondistended.
Back: Normal range of motion, Normal alignment.
Musculoskeletal: Normal range of motion, normal strength.
Neurological: Alert and oriented to person, place, time, and situation, No focal neurological deficit observed.
Psychiatric: Cooperative, appropriate mood & affect.
PLAN
- Perform a CT scan of the head to evaluate the headache given the patient�s history of Hodgkins disease.
- Administer Toradol to help alleviate the headache without inducing sleepiness.
- Check patient�s electrolytes.
DIFFERENTIAL DIAGNOSIS
The Differential Diagnosis includes, in no particular order and is not limited to:
1. Migraine
2. Tension-type Headache
3. Cluster Headache
4. Medication Overuse Headache
5. Sinusitis
6. Cervicogenic Headache
7. Intracranial Mass or Lesion
8. Temporal Arteritis
9. Subarachnoid Hemorrhage
10. Meningitis or other Central Nervous System Infection
CARE-UPDATE
02/08/25 - 02:34
Patient reports slight improvement following toradol administration. Plan to administer an additional dose alongside decadron. rizatriptan recommended and prescribed. CT head results normal. Patient is stable and cleared for discharge.
Disposition:
SUMMARY OF ENCOUNTER
The patient, a 29-year-old female with a history of Hodgkins disease, presented to the emergency department with a persistent headache of five days duration, which intensified two and a half hours before her arrival. The headache was primarily
located at the back of her head, with throbbing upon standing, and was accompanied by dizziness. A CT scan of the head was performed due to her medical history, and the results showed no intracranial hemorrhage or mass. The neurological exam was
normal. The patient was treated with intravenous ketorolac, resulting in improvement of her symptoms. It was concluded that the headache could be a migraine based on her history and presentation.
DISPOSITION
Discharge
ASSESSMENT
Headache, likely migraine given the history and absence of acute findings on imaging.
EMERGENCY TREATMENTS ADMINISTERED
- Intravenous ketorolac
PLAN
- Prescribe ketorolac (Toradol) for headache relief, avoiding sleepiness.
- Advise follow-up with primary care.
- Return if symptoms worsen or any new symptoms arise.
INDEPENDENT REVIEW OF LABS AND INTERPRETATION OF TESTS
- My independent interpretation of the CT scan of the head is normal, indicating no signs of hemorrhage or mass.
PATIENT EDUCATION AND COUNSELING
The patient was informed about the diagnosis, the nature of migraines, and the reassurance provided by the normal CT scan. She was advised on the importance of follow-up with her primary care provider and was instructed to return for care if
symptoms worsen or new symptoms develop.
FOLLOW-UP INSTRUCTIONS
Please follow up with your primary care provider. Return to the emergency department if symptoms worsen or if any new symptoms develop.
MEDICATION RECONCILIATION
- Ketorolac (Toradol): Administered intravenously during the visit for headache management.
MEDICAL DECISION MAKING
-Number and Complexity of Problems Addressed:
Chronic conditions affecting care: Hodgkins disease.
Differential diagnosis included migraine, tension-type headache, and other possible causes.
-Data:
Category 1
My independent interpretation of the CT scan indicates no intracranial hemorrhage or mass, supporting the diagnosis of a migraine.
-Risk:
Prescription medication was prescribed: Ketorolac (Toradol) was administered.
Past History
Past History
ED Past Medical History: Other (Gastritis); Negative None, Asthma, HTN, Hypercholesterolemia or NIDDM
ED Past Surgical History: and Other ([place] teeth removed in october)
Social History
Tobacco: Non-smoker
Alcohol: Occasional (Rare)
Personal: Single
Living: with family
Employment: Employed (Grocery store)
Family History
Family History: Other (Noncontributory)
Phy Exam
Physical Exam
Physical Exam:
.
Course
Orders/Labs/Results
Orders:
Orders
02/07/25 23:05
Cardiac Monitoring- Treatment ONCE
IV Insert/Care/Rem.- Treatment PRN
IV Insert/Care/Rem.- Treatment PRN
Ketorolac [Toradol] 15 mg IV NOW STA
02/07/25 23:06
Test Result ONCE
02/07/25 23:24
Complete Blood Count/With Diff Urgent
Comprehensive Metabolic Panel Urgent
HCG, Serum Qualitative Screen Urgent
02/08/25 00:00
CT Head W/o Iv Contrast Urgent
Reason For Exam: left parietal headache
02/08/25 01:41
Dexamethasone Sod Phosphate [Decadron] 10 mg IV NOW STA
Ketorolac [Toradol] 15 mg IV NOW STA
Abnormal Lab Results
02/07/25
23:24
RBC 3.53 L 10^6/uL
(4.20-5.40)
Hgb 9.3 L g/dL
(12.0-16.0)
Hct 28.6 L %
(37.0-47.0)
MCH 26.3 L pg
(27.0-31.0)
MCHC 32.5 L g/dL
(33.0-37.0)
RDW 18.1 H %
(11.5-14.5)
MPV 10.6 H fL
(7.4-10.4)
Immature Gran % 0.7 H %
(0-0.5)
02/07/25 23:24
02/07/25 23:24
Vital Signs
Initial and Last Documented VS:
Initial Vital Signs
Temp Pulse Resp BP Pulse Ox
98.4 F 82 18 139/84 98
02/07/25 22:32 02/07/25 22:32 02/07/25 22:32 02/07/25 22:32 02/07/25 22:32
Last Documented Vital Signs
Temp Pulse Resp BP Pulse Ox
98.4 F 71 16 123/67 98
02/07/25 22:32 02/08/25 01:45 02/08/25 01:45 02/08/25 01:00 02/08/25 01:45
*Pulse Oximetry
SaO2: 98
Patient hypoxic: no
*Critical Care Note
Total Time (30-74mins, 75-104mins- exclusive of procedures): Not Applicable
ED Attending Note
-
Portions of this chart may have been created with voice recognition software.� Occasional wrong word or��sound alike� substitutions may have occurred due to the inherent limitations of voice recognition software.
Discharge Plan
Departure
Patient Disposition: Home (Routine Discharge)
Date of Disposition: 02/08/25
Time of Disposition: 01:43
Patient with high blood pressure during this ER visit?: Yes
Condition: Good
Discharge Problem:
Headache
Instructions: Headache, Adult (DC), BLOOD PRESSURE
Prescriptions:
New
rizatriptan 5 mg tablet,disintegrating
5 mg PO ONCE PRN (Reason: migraine headache) Qty: 10 0RF
Rx Instructions:
can repeat after 1 hour, max dose 30 mg in 24 hours
No Action
escitalopram oxalate [Lexapro] 10 mg Tablet
10 mg PO DAILY
polyethylene glycol 3350 17 gram Powder In Packet
17 g PO DAILYPRN PRN (Reason: constipation) Qty: 0 0RF
sennosides-docusate sodium [Senna Plus] 8.6-50 mg Tablet
1 tab PO BIDPRN PRN (Reason: constipation) Qty: 0 0RF
oxycodone 5 mg Tablet
5 mg PO Q4HPRN PRN (Reason: moderate pain) Qty: 15 0RF
folic acid 1 mg Tablet
1 mg PO DAILY
docusate sodium 100 mg capsule
100 mg PO BID PRN (Reason: constipation)
lorazepam [Ativan] 0.5 mg tablet
0.5 mg PO BID PRN (Reason: nausea and vomiting) Qty: 8 0RF
diclofenac sodium 75 mg tablet,delayed release (DR/EC)
75 mg PO BID Qty: 10 0RF
Interventions
Interventions:
*General Assessment Last Done: 02/07/25 22:32
*Neglect/Abuse Screening Last Done: 02/07/25 23:03
*ED COVID-19 Vaccine History Last Done: 02/07/25 23:03
*ED Influenza Vaccine History Last Done: 02/07/25 23:03
[facility] Fall Risk Assessment Tool Last Done: 02/07/25 23:57
*Risk Screen - Suicide (C-SSRS) Last Done: 02/07/25 23:03
*Nursing Disposition Last Done: 02/08/25 02:08
ED- Neurological Assessment Last Done: 02/07/25 23:03
Discharge Date and Time
Discharge Date/Time: 02/08/25 02:26
Print Language: CHINESE
[2025-02-07 23:06] VITALS: BP 121/66
[2025-02-07 23:17] VITALS: BMI 34.7
[2025-02-07] MEDS: TORADOL 15 MG IV (23:24)
[2025-02-07 23:46] LABS: Hematocrit 28.6 % (37.0-47.0); Hemoglobin 9.3 g/dL (12.0-16.0); Mean Corp Hgb Conc. 32.5 g/dL (33.0-37.0); Mean Corpuscular Volume 81.0 fL (81.0-99.0); Nucleated Red Blood Cells % 0 %; Platelet Count 359 10^3/uL (130-400); Red Cell Dist. Width 18.1 % (11.5-14.5)
[2025-02-07 23:55] LABS: HCG, Serum Qualitative Screen Negative
[2025-02-08] LABS: ALT (SGPT) 24 U/L (0-35); AST (SGOT) 28 U/L (14-36); Albumin 4.0 g/dl (3.5-5.0); Alkaline Phosphatase 77 U/L (38-126); Blood Urea Nitrogen 15 mg/dl (7-17); Calcium 9.2 mg/dl (8.4-10.2); Carbon Dioxide 28 mmol/L (22-30); Chloride 104 mmol/L (98-107); Estimated Creatinine Clearance 111 ml/min; Glucose 97 mg/dl (70-99); Potassium 4.1 mmol/L (3.5-5.1); Sodium 135 mmol/L (135-145); Total Protein 6.6 g/dl (6.3-8.2); eGFR > 60.00
[2025-02-08 00:40] VITALS: BP 126/65
[2025-02-08 01:00] VITALS: BP 123/67
[2025-02-08] MEDS: DECADRON 10 MG IV (01:52)
[2025-02-08] MEDS: TORADOL 15 MG IV (01:53)
== END 2025-02-08 02:26 | disposition home or self-care (01) ==
LOC: EMR 22:30
PROVIDERS: EMERGENCY PHYSICIAN Emergency Medicine; FAMILY PHYSICIAN Physician Assistant
DX: R51.9 Headache, unspecified (principal); R42 Dizziness and giddiness; R19.7 Diarrhea, unspecified; F41.9 Anxiety disorder, unspecified; F32.A Depression, unspecified; Z85.71 Personal history of Hodgkin lymphoma; Z91.048 Other nonmedicinal substance allergy status
CPT/HCPCS: 99284; 96374; 96375; 96376; 70450; 80053; 84703; 85025

== ENCOUNTER 2025-02-09 22:51 | Emergency (ER) | payer OTHER, SELFPAY ==
[2025-02-09 23:02] VITALS: BP 125/74
--- NOTE | 2025-02-10 02:18 | EDRN ---
Pt reports having a headache for the past week, was seen here on Monday, had bloodwork and CT scan done. Pt states nothing helped her and she was discharged. Pt states today she took excedrin migraine and rizatriptan twice without any relief. Pt
states she called her oncologist and he wants an MRI done.
[2025-02-10 02:20] VITALS: BP 119/77; BMI 35.6
--- NOTE | 2025-02-10 03:43 | ED.GENMED ---
History of Present Illness
General
Chief Complaint: Headache
Source: patient
Exam Limitations: none
Time Seen by Provider: 02/10/25 02:57
Nursing documentation reviewed up to this point in time: agreed with
History of Present Illness
History of Present Illness:
29-year-old female with Hodgkin's lymphoma currently on chemo, migraine history presenting to the emergency department today with concerns of ongoing headache over the past few days. Was here 3 days ago with similar send and received a migraine
cocktail with some improvement of symptoms. Had a CT scan that did not show emergent findings at the time as well. She has since discussed her symptoms with her oncologist and recommended getting an MRI. She has yet to get this. Denies any
numbness weakness. Claims that she may have had a fever earlier denies any chest pain shortness of breath or any recent viral illness
Past History
Past History
ED Past Medical History: Other (Gastritis); Negative None, Asthma, HTN, Hypercholesterolemia or NIDDM
ED Past Surgical History: and Other ([place] teeth removed in october)
Social History
Tobacco: Non-smoker
Alcohol: Occasional (Rare)
Personal: Single
Living: with family
Employment: Employed (Grocery store)
Family History
Family History: Other (Noncontributory)
Review of Systems
Review of Systems
Allergies reviewed?: Yes
All Other Systems: ROS reviewed and negative except as documented in HPI and ROS
Phy Exam
Physical Exam
Physical Exam:
GENERAL: Alert , in no apparent distress
EYE: pupils equal and reactive
NECK: Supple, no significant adenopathy.
ENT: o/p clr, mmm.
CARDIAC: Regular rate and rhythm .
LUNGS: Clear breath sounds bilaterally, no acute respiratory distress, no wheezes/rales/rhonchi
ABDOMEN: Soft, without focal tenderness, no r/g, no cvat
NEUROLOGICAL: Alert and oriented, no focal neuro deficits 5 out of 5 upper and lower extremity strength normal sensation with palpating bilaterally
SKIN: Warm and dry, skin intact.
MUSCULOSKELETAL: No edema, well perfused.
PSYCH: Normal and appropriate interaction.
Course
Orders/Labs/Results
Orders:
Orders
02/10/25 03:28
0.9% Sodium Chloride 1000 ml [Nss] 1,000 ml IV BOLUS
Acetaminophen [Tylenol] 1,000 mg PO NOW STA
Dexamethasone Sod Phosphate [Decadron] 10 mg IV NOW STA
Diphenhydramine [Benadryl] 50 mg IV NOW STA
Ketorolac [Toradol] 30 mg IV NOW STA
Metoclopramide [Reglan] 10 mg IV NOW STA
Test Result ONCE
02/10/25 03:47
Complete Blood Count/With Diff Urgent
Comprehensive Metabolic Panel Urgent
HCG, Serum Qualitative Screen Urgent
Abnormal Lab Results
02/10/25
03:47
RBC 3.41 L 10^6/uL
(4.20-5.40)
Hgb 8.8 L g/dL
(12.0-16.0)
Hct 27.5 L %
(37.0-47.0)
MCV 80.6 L fL
(81.0-99.0)
MCH 25.8 L pg
(27.0-31.0)
MCHC 32.0 L g/dL
(33.0-37.0)
RDW 19.4 H %
(11.5-14.5)
Plt Count 407 H 10^3/uL
(130-400)
Immature Gran % 0.6 H %
(0-0.5)
02/10/25 03:47
02/10/25 03:47
Vital Signs
Initial and Last Documented VS:
Initial Vital Signs
Temp Pulse Resp BP Pulse Ox
98.2 F 66 15 125/74 97
02/09/25 23:02 02/09/25 23:02 02/09/25 23:02 02/09/25 23:02 02/09/25 23:02
Last Documented Vital Signs
Temp Pulse Resp BP Pulse Ox
98.2 F 76 16 138/79 98
02/09/25 23:02 02/10/25 03:58 02/10/25 03:58 02/10/25 03:58 02/10/25 03:58
MDM/Problems Addressed
MDM/Problems Addressed:
29-year-old female presenting to the emergency department today with concerns of ongoing diffuse throbbing headache ongoing for the past few days. Normal CT scan a few days ago. Normal neurologic evaluation on arrival here vital signs are normal.
After medications patient feels better stable for close outpatient follow-up. Return precautions given.
*Pulse Oximetry
SaO2: 100
Oxygen Mode of Delivery: Room air
Patient hypoxic: no (98)
*Critical Care Note
Total Time (30-74mins, 75-104mins- exclusive of procedures): Not Applicable
ED Attending Note
-
Portions of this chart may have been created with voice recognition software.� Occasional wrong word or��sound alike� substitutions may have occurred due to the inherent limitations of voice recognition software.
Discharge Plan
Departure
Patient Disposition: Home (Routine Discharge)
Date of Disposition: 02/10/25
Time of Disposition: 05:22
Patient with high blood pressure during this ER visit?: No
Covid-19: Not Applicable
Discharge Problem:
Headache
Instructions: Migraines (DC)
Prescriptions:
No Action
escitalopram oxalate [Lexapro] 10 mg Tablet
10 mg PO DAILY
polyethylene glycol 3350 17 gram Powder In Packet
17 g PO DAILYPRN PRN (Reason: constipation) Qty: 0 0RF
sennosides-docusate sodium [Senna Plus] 8.6-50 mg Tablet
1 tab PO BIDPRN PRN (Reason: constipation) Qty: 0 0RF
oxycodone 5 mg Tablet
5 mg PO Q4HPRN PRN (Reason: moderate pain) Qty: 15 0RF
folic acid 1 mg Tablet
1 mg PO DAILY
docusate sodium 100 mg capsule
100 mg PO BID PRN (Reason: constipation)
lorazepam [Ativan] 0.5 mg tablet
0.5 mg PO BID PRN (Reason: nausea and vomiting) Qty: 8 0RF
diclofenac sodium 75 mg tablet,delayed release (DR/EC)
75 mg PO BID Qty: 10 0RF
rizatriptan 5 mg tablet,disintegrating
5 mg PO ONCE PRN (Reason: migraine headache) Qty: 10 0RF
Rx Instructions:
can repeat after 1 hour, max dose 30 mg in 24 hours
Referrals:
Magali Avendano PA-C [Family Provider, Internal Medicine]
Activity Restrictions/Additional Instructions:
You came to the emergency department today with concerns of headache. Please follow closely as an outpatient for this. Return for any worsening, new or concerning symptoms.
Interventions
Interventions:
*General Assessment Last Done: 02/09/25 23:02
*Neglect/Abuse Screening Last Done: 02/09/25 23:02
*ED COVID-19 Vaccine History Last Done: 02/09/25 23:02
*ED Influenza Vaccine History Last Done: 02/09/25 23:02
[facility] Fall Risk Assessment Tool Last Done: 02/10/25 01:50
*Risk Screen - Suicide (C-SSRS) Last Done: 02/09/25 23:02
ED- Neurological Assessment Last Done: 02/10/25 02:20
Discharge Date and Time
Print Language: GUAMANIAN
[2025-02-10] MEDS: NSS 1000 IV (03:47)
[2025-02-10] MEDS: TORADOL 30 MG IV (03:48)
[2025-02-10] MEDS: TYLENOL 1000 MG PO (03:48)
[2025-02-10] MEDS: REGLAN 10 MG IV (03:48)
[2025-02-10] MEDS: BENADRYL 50 MG IV (03:48)
[2025-02-10] MEDS: DECADRON 10 MG IV (03:55)
[2025-02-10 03:58] VITALS: BP 138/79
[2025-02-10 04:22] LABS: Hematocrit 27.5 % (37.0-47.0); Hemoglobin 8.8 g/dL (12.0-16.0); Mean Corp Hgb Conc. 32.0 g/dL (33.0-37.0); Mean Corpuscular Volume 80.6 fL (81.0-99.0); Nucleated Red Blood Cells % 0 %; Platelet Count 407 10^3/uL (130-400); Red Cell Dist. Width 19.4 % (11.5-14.5)
[2025-02-10 04:27] LABS: HCG, Serum Qualitative Screen Negative
[2025-02-10 04:34] LABS: ALT (SGPT) 19 U/L (0-35); AST (SGOT) 17 U/L (14-36); Albumin 3.7 g/dl (3.5-5.0); Alkaline Phosphatase 67 U/L (38-126); Blood Urea Nitrogen 14 mg/dl (7-17); Calcium 9.1 mg/dl (8.4-10.2); Carbon Dioxide 27 mmol/L (22-30); Chloride 105 mmol/L (98-107); Estimated Creatinine Clearance > 125 ml/min; Glucose 99 mg/dl (70-99); Potassium 4.1 mmol/L (3.5-5.1); Sodium 136 mmol/L (135-145); Total Protein 6.3 g/dl (6.3-8.2); eGFR > 60.00
== END 2025-02-10 06:24 | disposition home or self-care (01) ==
LOC: EMR 22:51
PROVIDERS: Physician Assistant; EMERGENCY PHYSICIAN Emergency Medicine; FAMILY PHYSICIAN Physician Assistant
DX: R51.9 Headache, unspecified (principal); C81.90 Hodgkin lymphoma, unspecified, unspecified site; Z79.60 Long term (current) use of unspecified immunomodulators and immunosuppressants
CPT/HCPCS: 96374; 96375; 96361; 99284; 80053; 84703; 85025